=== PATIENT | male | born 1945 | race Caucasian/White ===

== ENCOUNTER 2018-06-21 22:21 | Inpatient (IN) | payer MEDICARE ==
[~2018-06-21] VITALS: Ht 160 cm; Wt 63.0 kg
[2018-06-21] MEDS ORDERED: GLUCOTROL 5 MG T5 MG PO (22:25)
[2018-06-21] MEDS ORDERED: SINEMET 25-2501 EACH PO (22:25)
[2018-06-21] MEDS ORDERED: COZAAR25 MG PO (22:26)
[2018-06-21] MEDS ORDERED: METOPROLOL TART25 MG PO (22:26)
[2018-06-21] MEDS ORDERED: AMANTADINE100 M1 PO (22:26)
[2018-06-21] MEDS ORDERED: ELIQUIS2.5 MG PO (22:26)
[2018-06-21] MEDS ORDERED: BAYER CHEWABLE81 MG PO (22:26)
[2018-06-21] MEDS ORDERED: MELATONIN 3 MG1 TAB PO (22:27)
[2018-06-21] MEDS ORDERED: TIROSINT50 MCG PO (22:46)
[2018-06-21 22:57] LABS: BASOPHILS 0.3 % (0-2); EOSINOPHILS 0.1 % (0-7); HEMATOCRIT 36.2 % (42.0-54.0); HEMOGLOBIN 11.4 g/dL (13.5-17.5); LYMPHOCYTES 11.5 % (15-50); MCH 30.8 pg (26.0-34.0); MCHC 31.5 g/dL (31.0-37.0); MCV 97.8 fL (80.0-100.0); MEAN PLATELET VOLUME 10.4 fL (7.4-10.4); MONOCYTES 4.8 % (2-11); NEUTROPHILS 82.3 % (40-80); PLATELET COUNT 240 10x3/uL (130-400); RDW 14.6 % (11.5-14.5); WBC 11.4 10x3/uL (4.8-10.8)
[2018-06-21 23:16] LABS: APTT 30.2 SECONDS (22.8-39.4); INR 1.76 (0.85-1.17); PROTIME 19.9 SECONDS (11.6-15.0)
[2018-06-21 23:25] LABS: ALBUMIN 2.8 g/dL (3.4-5.0); ALT (SGPT) 71 U/L (10-68); BILIRUBIN - TOTAL 0.79 mg/dL (0.2-1.3); CALC OSMOLALITY 291 mosm/kg (275-300); CALCIUM 7.9 mg/dL (8.5-10.1); CARBON DIOXIDE 26.4 mmol/L (21.0-32.0); CHLORIDE - SERUM 100 mmol/L (98-107); CKMB 2.8 U/L (0.0-3.6); CREATINE KINASE 210 UL (21-232); CREATININE - SERUM 2.2 mg/dL (0.6-1.3); GLUCOSE 255 mg/dL (74-106); PRO BNP 4729 pg/mL (0-125); PROTEIN - SERUM 8.1 g/dL (6.4-8.2); SODIUM 136 mmol/L (136-145); UREA NITROGEN 42 mg/dL (7-18); eGFR NON AFRICAN AMERICAN 32 mL/min (90-120)
[2018-06-21 23:39] LABS: ALKALINE PHOSPHATASE 158 U/L (46-116)
[2018-06-21 23:49] LABS: TROPONIN-I 0.077 ng/mL (0.000-0.060)
[2018-06-22] VITALS (23 sets, daily range): BP systolic 82–152; BP diastolic 45–85; Ht 160 cm; Wt 63.0 kg
--- NOTE | 2018-06-22 00:34 | NUR ---
PT GIVEN WARM BLANKETS.
--- NOTE | 2018-06-22 01:16 | NUR ---
PT GIVEN URINAL.
--- NOTE | 2018-06-22 07:00 | NUR ---
PT INTUBATED ON 100 PERCENT FIO2. O2 SAT 100 PERCENT. ASSESSMENT PER FLOWSHEET. BL WRIST RESTRAINTS ON.
--- NOTE | 2018-06-22 07:00 | NUR ---
PT RECEIVED FROM ED APPROX 0240 ACCOMPANIED BY SON AND [id number]. THE PT'S [id number] ACTED OUTSOLE MOLDER DURING THE ASSESSMENT, REPORTED THE TIMES OF MEDICINES TAKEN AT HOME, AND REPORTED MOST OF THE PT'S HEALTH HISTORY. UPON ARRIVAL, THE PT WAS PLACED ON BIPAP, ASSESSMENT PER FLOW SHEET. DR RODRIGUEZ WAS HERE TO SEE PT AND ORDERED INTUBATION BY ANESTHESIA. PT WAS INTUBATED APPROX 0520, RESTRAINTS PLACED ON THE PT PER DR RODRIGUEZ. TWO RN'S ATTEMPTED TO PLACE AN NGT, THE TUBE WAS THEN PLACED ORALLY. THERE WAS SOME BRIGHT RED BLOOD NOTED FROM BOTH NARES, AND WHEN SUCTIONED VIA ETT. ETT AND OGT PLACEMENT CONFIRMED WITH CXRY, NO CHANGES REQUIRED. (PT TAKES BLOOD THINNERS PART OF HOME REGIMEN) A MEEK CATHETER WAS ALSO PLACED. THE PT'S BLOOD PRESSURE SHOWED IMPROVEMENT AFTER THE ORDERED 500 ML NS BOLUS, CONTINUE TO MONITOR VS AND COMPLETE PHYSICIAN'S ORDERS. REPORT TO ONCOMING FATOU
[2018-06-22 07:22] LABS: % SATURATION 17 % (15-55); IRON 32 ug/dl (35-150); TOTAL IRON BIND CAPACITY 178 ug/dl (260-445); UNSAT IRON BIND CAPACITY 146 ug/dl (150-375)
[2018-06-22 13:23] LABS: CKMB 2.2 U/L (0.0-3.6); CREATINE KINASE 249 UL (21-232)
[2018-06-22 13:25] LABS: TROPONIN-I 0.157 ng/mL (0.000-0.060)
--- NOTE | 2018-06-22 15:42 | NUR ---
CVL PLACED PER CELSO MAHONEY. DR EUCEDA HERE ASSISTING. CXR ORDERED.
--- NOTE | 2018-06-22 17:00 | NUR ---
COMPLETE BATH GIVEN. LINENS CHANGED.
[2018-06-22 19:33] LABS: CKMB 1.6 U/L (0.0-3.6); CREATINE KINASE 234 UL (21-232)
[2018-06-22 19:35] LABS: TROPONIN-I 0.196 ng/mL (0.000-0.060)
[2018-06-23] VITALS (24 sets, daily range): BP systolic 36–143; BP diastolic 61–73
[2018-06-23 01:39] LABS: CREATINE KINASE 293 UL (21-232); TROPONIN-I 0.182 ng/mL (0.000-0.060)
[2018-06-23 03:13] LABS: BASOPHILS 0.2 % (0-2); EOSINOPHILS 0 % (0-7); HEMATOCRIT 28.2 % (42.0-54.0); HEMOGLOBIN 9.1 g/dL (13.5-17.5); IMMATURE GRANULOCYTES 0.8 % (0-5); LYMPHOCYTES 10.7 % (15-50); MCH 30.1 pg (26.0-34.0); MCHC 32.3 g/dL (31.0-37.0); MEAN PLATELET VOLUME 10.3 fL (7.4-10.4); MONOCYTES 2.4 % (2-11); NEUTROPHILS 85.9 % (40-80); RBC 3.02 10x6/uL (4.20-6.10); RDW 14.6 % (11.5-14.5); WBC 13.2 10x3/uL (4.8-10.8)
[2018-06-23 03:14] LABS: MCV 93.4 fL (80.0-100.0); PLATELET COUNT 154 10x3/uL (130-400)
[2018-06-23 03:37] LABS: BILIRUBIN - TOTAL 1.14 mg/dL (0.2-1.3); CALCIUM 7.3 mg/dL (8.5-10.1); CARBON DIOXIDE 25.2 mmol/L (21.0-32.0); CREATININE - SERUM 2.6 mg/dL (0.6-1.3); MAGNESIUM - SERUM 2.2 mg/dL (1.8-2.4); PHOSPHOROUS 3.2 mg/dL (2.5-4.9); PROTEIN - SERUM 6.4 g/dL (6.4-8.2); VANCOMYCIN - RANDOM 10.2 ug/mL (10.0-20.0)
[2018-06-23 03:38] LABS: ANION GAP 11.7 mmol/L (8-16); POTASSIUM - SERUM 3.9 mmol/L (3.5-5.1)
--- NOTE | 2018-06-23 04:11 | NUR ---
CHANGED PT FI02 TO 50% AND VT TO 450 BECAUSE OF MORNING ABG
--- NOTE | 2018-06-23 08:28 | NUR ---
RANDOM VANCOMYCIN LEVEL WAS 10.2 AFTER ONE DOSE. WILL CONTINUE Q 24H DOSING AND DAILY RANDOM LEVELS
--- NOTE | 2018-06-23 10:09 | NUR ---
Nutrition follow-up: Pt intubated, sedated Pulmocare started @ 20 ml/hr->to advance to goal rate of 40 ml/hr 25 ml H2O flush q hour Labs reviewed Wt: 130# RDN following.
[2018-06-23 10:20] LABS: FOLATE (FOLIC ACID) - SERUM >20.0 ng/mL (>3.0)
--- NOTE | 2018-06-23 10:22 | NUR ---
RANDOM FSBS 83, CHECKING DUE TO CURRENT INSTABILITY
--- NOTE | 2018-06-23 12:13 | NUR ---
CONSULTS CALLED TO DR. STUART AND DR. CORTEZ
[2018-06-23 14:28] LABS: INR 3.66 (0.85-1.17); PROTIME 35.5 SECONDS (11.6-15.0)
--- NOTE | 2018-06-23 15:00 | MORECARE ---
CASE MANAGEMENT DISCHARGE SUMMARY PATIENT: KAYCEE THEODORE UNIT: [id number] ADM DATE: 06/22/18 AGE: 72 : 47 SEX: M ROOM/BED: D.2307 AUTHOR: RON KASPER PHYSICIAN: REFERRING PHYSICIAN: ESPERANZA RODRIGUEZ MD DATE OF SERVICE: 06/23/18 Discharge Plan Patient Name: KAYCEE THEODORE [facility] [facility] 1945 Planned Disposition: Home Anticipated Discharge Date: Discharge Date: Expected LOS: Initial Reviewer: [email or web address] Initial Review Date: 06/22/2018 Generated: 06/23/18 3:59 pm DCPIA - Discharge Planning Initial Assessment Updated by [email or web address]: Marylou Moon on 06/23/18 2:55 pm * Is the patient Alert and Oriented? Yes * How many steps to enter\exit or inside your home? 10 - 14 * PCP HOLLY * Pharmacy [facility] * Preadmission Environment Home with Family * ADLs Independent * Other Equipment Cane, Walker * List name and contact numbers for known caregivers / representatives who currently or will assist patient after discharge: Collin Theodore - daughter - [phone] * Verbal permission to speak to the caregivers and representatives has been obtained from the patient. N/A * Community resources currently utilized None * Additional services required to return to the preadmission environment? No * Can the patient safely return to the preadmission environment? Yes * Has this patient been hospitalized within the prior 30 days at any hospital? No Patient Name: KAYCEE THEODORE Page [id number] at 1500 All edits/amendments must be made on the electronic document DICTATION DATE: 06/23/181458 PACK OUT OPERATOR: GABRIELA 06/23/181458 RPT#: [id number] DC DATE: STATUS: ADM IN [facility] [address] [place] [address] END OF REPORT
--- NOTE | 2018-06-23 15:08 | MORECARE ---
CASE MANAGEMENT DISCHARGE SUMMARY PATIENT: KAYCEE THEODORE UNIT: [id number] ADM DATE: 06/22/18 AGE: 72 : 47 SEX: M ROOM/BED: D.2307 AUTHOR: RANJITH,DOC PHYSICIAN: REFERRING PHYSICIAN: ESPERANZA RODRIGUEZ MD DATE OF SERVICE: 06/23/18 Discharge Plan Patient Name: KAYCEE THEODORE Facility: [facility]:[place] : 1945 Planned Disposition: Home Anticipated Discharge Date: Discharge Date: Expected LOS: Initial Reviewer: [email or web address] Initial Review Date: 06/22/2018 Generated: 06/23/18 4:07 pm Comments DCP- Discharge Planning Updated by [email or web address]: Marylou Moon on 06/23/18 2:[address] Patient Name: KAYCEE THEODORE Admission Status: ER Accout number: [id number] Admission Date: 06-22-2018 : 1945 Admission Diagnosis: Attending: ESPERANZA RODRIGUEZ Current LOS: 1 Anticipated DC Date: Planned Disposition: Home Primary Insurance: MEDICARE A & B Discharge Planning Comments: CM met with patient's daughter (Collin) at bedside. Patient is currently on ventilator and sedated. Collin stated that he lives at home with family and plans on him returning there upon discharge. She states that he has a cane and walker. She denies any current discharge needs at this time. CM will continue to follow and assist as needed with discharge planning / needs. Subway Repair Supervisor: Marylou Moon DCPIA - Discharge Planning Initial Assessment Updated by [email or web address]: Marylou Moon on 06/23/18 2:55 pm * Is the patient Alert and Oriented? Yes * How many steps to enter\exit or inside your home? 10 - 14 * PCP HOLLY * Pharmacy [facility] * Preadmission Environment Home with Family * ADLs Independent * Other Equipment Cane, Walker * List name and contact numbers for known caregivers / representatives who currently or will assist patient after discharge: Collin Theodore - daughter - [phone] * Verbal permission to speak to the caregivers and representatives has been obtained from the patient. N/A * Community resources currently utilized None * Additional services required to return to the preadmission environment? No * Can the patient safely return to the preadmission environment? Yes * Has this patient been hospitalized within the prior 30 days at any hospital? No Last DP export: 06/23/18 1:59 p Patient Name: KAYCEE THEODORE Page [id number] at 1508 All edits/amendments must be made on the electronic document DICTATION DATE: 06/23/181506 MEDICAL LEADER: DM 06/23/181506 RPT#: [id number] DC DATE: STATUS: ADM IN [facility] [address] [place] [address] END OF REPORT
--- NOTE | 2018-06-23 16:46 | NUR ---
STARTED PULMOCARE TO OGT AT 20ML/HR
--- NOTE | 2018-06-23 18:43 | NUR ---
FSBS WAS 66 25ML DEXTROSE GIVEN
--- NOTE | 2018-06-23 19:15 | NUR ---
RECIEVED CARE OF PT ASSESSMENT PER FLOWSHEET. HR SB ON CM, PPP, CRACKLES AUSC BILAT WITH DIM BASES, MEEK CATH PATENT, SEDATED ON VENT WITH 40 MCG/KG/MIN OF DIPRIVAN, OPENS EYES TO VOICE. ORAL CARE AND SUCTIONING PROVIDED, PT POSITIONED FOR COMFORT SUPPORTED WITH PILLOWS, WILL MONITOR.
--- NOTE | 2018-06-23 21:40 | NUR ---
PT FAMILY IN FOR VISITATION, ALL QUESTIONS ANSWERED, ORAL CARE AND SUCTIONING PROVIDED.
--- NOTE | 2018-06-23 23:15 | NUR ---
REASSESSMENT PER FLOWSHEET, NO ACUTE CHANGES NOTED AT THIS TIME. POSITIONED FOR COMFORT SUPPORTED WITH PILLOWS, CONT POC.
[2018-06-24] VITALS (24 sets, daily range): BP systolic 97–145; BP diastolic 52–77
--- NOTE | 2018-06-24 01:28 | NUR ---
PT POSITIONED FOR COMFORT, ORAL CARE AND SUCTIONING PROVIDED. VSS
--- NOTE | 2018-06-24 01:50 | NUR ---
PT RESTING IN BED WITH EYES CLOSED, VSS, CONT TO MONITOR.
--- NOTE | 2018-06-24 03:34 | NUR ---
RADIOLOGY AT BEDSIDE, AM CXR COMPLETED PER MD ORDER, PT TOLERATED WITHOUT DIFFICULTY.
--- NOTE | 2018-06-24 04:35 | NUR ---
CHANGED FIO2 TO 30% FOLLOWING MORNING ABG
[2018-06-24 05:39] LABS: INR 2.61 (0.85-1.17); PROTIME 27.2 SECONDS (11.6-15.0)
[2018-06-24 05:52] LABS: ALBUMIN 1.8 g/dL (3.4-5.0); ANION GAP 14.8 mmol/L (8-16); BILIRUBIN - TOTAL 2.11 mg/dL (0.2-1.3); CALCIUM 7.4 mg/dL (8.5-10.1); POTASSIUM - SERUM 3.8 mmol/L (3.5-5.1); PROTEIN - SERUM 6.2 g/dL (6.4-8.2); THYROID STIMULATING HORMONE 3.11 uIU/mL (0.36-3.74); VANCOMYCIN - RANDOM 11.4 ug/mL (10.0-20.0)
[2018-06-24 06:06] LABS: CREATININE - SERUM 1.6 mg/dL (0.6-1.3); PHOSPHOROUS 2.2 mg/dL (2.5-4.9)
--- NOTE | 2018-06-24 08:31 | NUR ---
CANISTERS CHANGED, LINEN CHANGED, DIPRIVAN LINE CHANGED, PATIENT POSITION CHANGED, ORAL CARE COMPLETED
--- NOTE | 2018-06-24 09:48 | NUR ---
WILL GIVE VIT. K UPON ARRIVAL FROM Rx
[2018-06-24 10:28] LABS: BASOPHILS 0.2 % (0-2); EOSINOPHILS 0.5 % (0-7); HEMATOCRIT 29.1 % (42.0-54.0); HEMOGLOBIN 9.3 g/dL (13.5-17.5); IMMATURE GRANULOCYTES 0.3 % (0-5); LYMPHOCYTES 9.5 % (15-50); MCH 30.3 pg (26.0-34.0); MCV 94.8 fL (80.0-100.0); MEAN PLATELET VOLUME 11.1 fL (7.4-10.4); MONOCYTES 2.9 % (2-11); NEUTROPHILS 86.6 % (40-80); PLATELET COUNT 143 10x3/uL (130-400); RBC 3.07 10x6/uL (4.20-6.10); RDW 15.1 % (11.5-14.5); WBC 11.6 10x3/uL (4.8-10.8)
--- NOTE | 2018-06-24 10:46 | NUR ---
PLACED INTO TEMP. DROPLET ISOLATION PER MICRO.
--- NOTE | 2018-06-24 14:45 | NUR ---
RESTARTED SEDATION PATEIT BP RISING AND HE IS BECOMING VERY ANXIOUS. RT NOTIFIED OF CHANGE
--- NOTE | 2018-06-24 15:17 | NUR ---
SPOKE WITH DR. EUCEDA ABOUT POSSIBLE CVL MIGRATION, HE IS REVIEWING XRAY
--- NOTE | 2018-06-24 15:55 | NUR ---
ALL ITEMS ASSEMBLED PER ORDERED AND CONSENT SIGNED FOR CVL CHANGE OUT.
[2018-06-24 19:08] LABS: ACID FAST SMEAR Negative (()); AFB SPECIMEN PROCESSING Concentration (())
--- NOTE | 2018-06-24 19:15 | NUR ---
RESUMED CARE OF PT, ASSESSMENT PER FLOWSHEET. HR SR WITH FREQUENT PAC'S ON CM, PPP, MEEK CATH PATENT, OGT PLACEMENT VERIFIED WITH AUSC OF SMALL AIR BOLUS, RESIDUAL OF 10 CC NOTED. ORAL CARE AND SUCTIONING PROVIDED, PT POSITIONED FOR COMFORT SUPPORTED WITH PILLOWS.
--- NOTE | 2018-06-24 21:10 | NUR ---
FAMILY PRESENT FOR VISITATION, DENY ANY QUESTIONS OR NEEDS AT THIS TIME. VSS
--- NOTE | 2018-06-24 23:15 | NUR ---
REASSESSMENT PER FLOWSHEET, NO ACUTE CHANGES NOTED AT THIS TIME, HR REMAINS SR WITH PAC'S, CONT POC.
[2018-06-25] VITALS (24 sets, daily range): BP systolic 93–134; BP diastolic 46–71
--- NOTE | 2018-06-25 01:00 | NUR ---
PT POSITIONED FOR COMFORT SUPPORTED WITH PILLOWS, ORAL CARE AND SUCTIONING PROVIDED, VSS.
--- NOTE | 2018-06-25 03:40 | NUR ---
AM CXR COMPLETED PER MD ORDER, PT TOLERATED WITHOUT DIFFICULTY, POSITIONED FOR COMFORT, VSS.
--- NOTE | 2018-06-25 05:53 | NUR ---
NO VISITORS PRESENT AT THIS TIME, VSS, CONT TO MONITOR.
[2018-06-25 06:57] LABS: BASOPHILS 0.2 % (0-2); HEMATOCRIT 27.6 % (42.0-54.0); HEMOGLOBIN 8.9 g/dL (13.5-17.5); IMMATURE GRANULOCYTES 1.1 % (0-5); LYMPHOCYTES 15.5 % (15-50); MCH 30.2 pg (26.0-34.0); MCHC 32.2 g/dL (31.0-37.0); MCV 93.6 fL (80.0-100.0); MEAN PLATELET VOLUME 11.2 fL (7.4-10.4); MONOCYTES 4.7 % (2-11); NEUTROPHILS 76.5 % (40-80); PLATELET COUNT 134 10x3/uL (130-400); RBC 2.95 10x6/uL (4.20-6.10); WBC 9.7 10x3/uL (4.8-10.8)
[2018-06-25 07:00] LABS: INR 1.99 (0.85-1.17)
--- NOTE | 2018-06-25 07:00 | NUR ---
REC'ED REPORT FROM OUTGOING RN - PT RESTING WITH EYES CLOSED - RESPIRATIONS REG RATE AND RHYTHM - CPOC
[2018-06-25 07:14] LABS: ALBUMIN 1.7 g/dL (3.4-5.0); ANION GAP 13.8 mmol/L (8-16); BILIRUBIN - TOTAL 2.94 mg/dL (0.2-1.3); CALCIUM 7.3 mg/dL (8.5-10.1); CREATININE - SERUM 1.6 mg/dL (0.6-1.3); PHOSPHOROUS 2.1 mg/dL (2.5-4.9); POTASSIUM - SERUM 3.8 mmol/L (3.5-5.1); PROTEIN - SERUM 6.4 g/dL (6.4-8.2); VANCOMYCIN - RANDOM 12.8 ug/mL (10.0-20.0)
--- NOTE | 2018-06-25 07:40 | NUR ---
REC'ED REPORT FROM OUT GOING RN - RADHA MARTINEZ PLAN TO WEAN PT TO CPAP TRIAL TODAY - CPOC AND REPORT FINDINGS
--- NOTE | 2018-06-25 08:00 | NUR ---
ASSESSMENT COMPLETE - MEDICATION GIVEN *SEE MAR* - BREAKFAST TRAY GIVEN TO PATIENT - CPOC
--- NOTE | 2018-06-25 08:30 | NUR ---
ANSWERED CALL LIGHT - PATIENT FINISHED WITH BREAKFASAT TRAY -
--- NOTE | 2018-06-25 08:30 | NUR ---
FAMILY IN ROOM - PATIENT ONLY SPEAK GUJARTI - DOES NOT SPEAK BURKINAN - ONLY HIS NEICE - PHONE NUMBER LISTED ON COVER SHEET - KRISTI UNABLE TO STAY WITH PATIENT SHE IS PRIMARY HOT MILL ROLLER TO PT'S SPOUSE AND MOTHER IN LAW - ATTEMPTED TO DOWNLAD INTERPERATION CLAUDIA BUT AUDITORY INTERPERTATION IS NOT AVAILABLE IN THIS LANGUAGE - [id number] PAGED [place] SUPERVIOR TO ASK FOR INTERPERTATION PHONE - AWAITING PHONE IF AVAILABLE -
--- NOTE | 2018-06-25 09:10 | NUR ---
DRECREASED DIPRAVAN TO 40MCG PER R.T. DIRECTION - PT ON SIM - OC
--- NOTE | 2018-06-25 10:40 | NUR ---
ADJUSTED FEED PUMP - REPOSTIOINED PT AND MEDICATIONS GIVEN
--- NOTE | 2018-06-25 11:26 | NUR ---
DR. DUARTE AT BEDSIDE FOR ASSESSMENT - DECREASED NS TO 50 ML/HR, PLAN OF BIPAP BID - VSS - CPOC
--- NOTE | 2018-06-25 11:27 | NUR ---
PLACED WARM BLANKET ON PT -
--- NOTE | 2018-06-25 13:59 | NUR ---
BATHED PT - CHANGED BED CLOTHES/LINENS - PT RESTING - VSS CPOC
--- NOTE | 2018-06-25 17:35 | NUR ---
REG INSULIN GIVEN - VSS - CPOC
--- NOTE | 2018-06-25 18:10 | NUR ---
DR. CORTEZ AT BEDSIDE FOR ASSESSMENT - REVIEWED EKG WITH MD AND PLAN OF CARE
--- NOTE | 2018-06-25 18:53 | NUR ---
REVIEWED 30 SECOND EKG STRIP - APPEARS THOUGH SICK SINUS - EKG AND LAB DRAWN - PAGED MANAGER CONTROL WARP CLAMPER - AWAITING CALL BACK
[2018-06-25 19:11] LABS: CALCIUM 7.3 mg/dL (8.5-10.1); CARBON DIOXIDE 22.3 mmol/L (21.0-32.0); CREATININE - SERUM 1.5 mg/dL (0.6-1.3); MAGNESIUM - SERUM 2.2 mg/dL (1.8-2.4); POTASSIUM - SERUM 4.3 mmol/L (3.5-5.1)
--- NOTE | 2018-06-25 19:30 | NUR ---
RESUMED CARE OF PT, ASSESSMENT PER FLOWSHEET. PT REMAINS INTUBATED AND SEDATED, SIMV SETTING 30% FIO2, RR IN 20'S. PT POSITIONED FOR COMFORT, ORAL CARE AND SUCTIONING PROVIDED, VSS.
--- NOTE | 2018-06-25 21:10 | NUR ---
ORAL CARE AND SUCTIONING PROVIDED, THICK FARRELL SPUTUM NOTED, POSITIONED FOR COMFORT SUPPORTED WITH PILLOWS, VSS.
--- NOTE | 2018-06-25 23:50 | NUR ---
ORAL CARE AND SUCTIONING PROVIDED, POSITIONED FOR COMFORT SUPPORTED WITH PILLOWS, VSS, CONT POC.
[2018-06-26] VITALS (21 sets, daily range): BP systolic 88–129; BP diastolic 46–71
[2018-06-26 03:57] LABS: BASOPHILS 0.2 % (0-2); EOSINOPHILS 2.9 % (0-7); HEMATOCRIT 26.9 % (42.0-54.0); HEMOGLOBIN 8.7 g/dL (13.5-17.5); IMMATURE GRANULOCYTES 2.2 % (0-5); LYMPHOCYTES 13.6 % (15-50); MCH 30.3 pg (26.0-34.0); MCHC 32.3 g/dL (31.0-37.0); MCV 93.7 fL (80.0-100.0); MEAN PLATELET VOLUME 10.5 fL (7.4-10.4); MONOCYTES 8.4 % (2-11); NEUTROPHILS 72.7 % (40-80); PLATELET COUNT 121 10x3/uL (130-400); RBC 2.87 10x6/uL (4.20-6.10); RDW 15.2 % (11.5-14.5); WBC 10.5 10x3/uL (4.8-10.8)
[2018-06-26 04:02] LABS: PROTIME 17.7 SECONDS (11.6-15.0)
[2018-06-26 04:04] LABS: INR 1.52 (0.85-1.17)
[2018-06-26 04:29] LABS: ALBUMIN 1.8 g/dL (3.4-5.0); ANION GAP 13.4 mmol/L (8-16); BILIRUBIN - TOTAL 4.62 mg/dL (0.2-1.3); CALCIUM 7.4 mg/dL (8.5-10.1); CARBON DIOXIDE 22.2 mmol/L (21.0-32.0); CREATININE - SERUM 1.6 mg/dL (0.6-1.3); PHOSPHOROUS 2.6 mg/dL (2.5-4.9); POTASSIUM - SERUM 4.6 mmol/L (3.5-5.1); PROTEIN - SERUM 6.1 g/dL (6.4-8.2); VANCOMYCIN - RANDOM 15.9 ug/mL (10.0-20.0)
--- NOTE | 2018-06-26 04:37 | NUR ---
AM LABS REVIEWED, NOTHING TO TREAT PER ELECTROLYTE PROTOCOL, CONT POC.
--- NOTE | 2018-06-26 05:50 | NUR ---
NO VISITORS PRESENT AT THIS TIME, PT POSITIONED FOR COMFORT SUPPORTED WITH PILLOWS, MEEK CARE PROVIDED.
--- NOTE | 2018-06-26 07:00 | NUR ---
SHIFT ASSESSMENT COMPLETED. PT CARE ASSUMED. MONITORS ON AND WORKING, VITALS STABLE, HEART RATE IRREGULAR, PT SEDATED ON VENT, NO SIGNS/SYMPTOMS OF PAIN OR DISCOMFORT NOTED AT THIS TIME. WILL CONTINUE TO OBSERVE.
--- NOTE | 2018-06-26 09:00 | NUR ---
PT TURNED AND REPOSITIONED, ORAL CARE DONE AT THIS TIME. NO SIGNS/SYMPTOMS OF PAIN OR DISCOMFORT NOTED, WILL CONTINUE TO OBSERVE.
--- NOTE | 2018-06-26 09:31 | NUR ---
Nutrition follow up: pt sedated on vent Pt is tolerating Pulmocare at 40mL/hour No water flushes at this time-nursing to ask physician about fluid Informed nursing of BETTYE Bray recommendation of water flushes of 20mL/hour Reviewed labs: BG 217, BUN 33, Cr 1.6, Ca 7.[address] following
--- NOTE | 2018-06-26 11:00 | NUR ---
PT TURNED AND REPOSITIONED. ORAL CARE DONE AT THIS TIME, NO FURTHER CHANGES, SEE FLOW SHEET FOR FURTHER DETAILS. WILL CONTINUE TO OBSERVE.
--- NOTE | 2018-06-26 13:00 | NUR ---
PT TURNED AND REPOSTIONED, MONITORS ON AND WORKING, VITALS STABLE, ORAL CARE DONE, WILL CONTINUE TO OBSERVE.
[2018-06-26 13:14] LABS: FUNGUS STAIN Final report (())
--- NOTE | 2018-06-26 15:00 | NUR ---
PT TURNED AND REPOSITIONED, MONITORS ON AND WORKING, ORAL CARE DONE AT THIS TIME, NO SIGNS/SYMPTOMS OF PAIN OR DISCOMFORT NOTED AT THIS TIME, WILL CONTINUE TO OBSERVE.
--- NOTE | 2018-06-26 17:00 | NUR ---
PT TURNED AND REPOSITIONED ORAL CARE DONE, NO SIGNS/SYMPTOMS OF PAIN OR DISCOMFORT NOTED AT THIS TIME, WILL CONTINUE TO OBSERVE.
[2018-06-27] VITALS (25 sets, daily range): BP systolic 116–158; BP diastolic 53–95
[2018-06-27 07:19] LABS: ALBUMIN 1.7 g/dL (3.4-5.0); BILIRUBIN - TOTAL 5.29 mg/dL (0.2-1.3); CALCIUM 7.7 mg/dL (8.5-10.1); CARBON DIOXIDE 22.8 mmol/L (21.0-32.0); CREATININE - SERUM 1.6 mg/dL (0.6-1.3); PROTEIN - SERUM 6.8 g/dL (6.4-8.2); VANCOMYCIN - RANDOM 18.9 ug/mL (10.0-20.0)
[2018-06-27 07:20] LABS: ANION GAP 11.7 mmol/L (8-16); POTASSIUM - SERUM 5.5 mmol/L (3.5-5.1)
[2018-06-27 08:22] LABS: HEPATITIS C ANTIBODY 0.1 S/CO RAT (0.0-0.9)
--- NOTE | 2018-06-27 12:46 | NUR ---
0700 ASLEEP WHILE ON VENT WITHOUT SEDATION. ASSESSMENT COMPLETE
--- NOTE | 2018-06-27 12:49 | NUR ---
0900 VENT SETTING CHANGED TO CPAP MODE BY RT MOUTH AND MEEK CARE PROVIDED REPOSITIONED IN BED PILLOW SUPPORT USED
--- NOTE | 2018-06-27 12:51 | NUR ---
1100 FAMILY MEMBERS AT BEDSIDE UPDATE PROVIDED ORAL CARE PERFORMED
--- NOTE | 2018-06-27 12:52 | NUR ---
1300 DR BARKSDALE EVALUATING POSSIBLE EXTUBATION REQUESTED NOT TO RRESTART TUBE FEEDING MAY REPEAT EVALUATION LATER IN THE DAY
--- NOTE | 2018-06-27 15:56 | NUR ---
1500 RESTARTED TUBE FEEDING PER DR JOSUE COLLIER. WILL NOT EXTUBATE TODAY PATIENT IS TOO LETHARGIC
--- NOTE | 2018-06-27 19:30 | NUR ---
Received patient sedated in bed on vent with eyes closed, assessment completed per flowsheet. Opens eyes to voice/responds to noxious stimuli. S1/S2 noted Controlled Afib on telemetry with HR 94. Vent settings A/C R-10 V-450 30% P-5 with O2 sat 97%, crackles noted bilateral upper and mid with diminished lower. All pulses palpable with cap refill < 3 sec, skin warm/dry. Oral care/suctioning provided, repositioned for comfort. No other needs at this time, see flowsheet for details. All VSS and will continue to monitor.
--- NOTE | 2018-06-27 21:20 | NUR ---
Patient sedated in bed on vent with eyes closed, oral care/suctioning provided. HS meds given without difficulty, repositioned for comfort. No further needs, all VSS and will continue to monitor.
--- NOTE | 2018-06-27 23:20 | NUR ---
Reassessment completed per flowsheet, no changes from previous assessment. Patient laying in bed on vent with eyes closed, no sedation in use. S1/S2 noted uncontrolled Afib on telemetry with HR 105. Vent settings unchanged from previous, crackles noted bilateral upper and mid with diminished lower. All pulses palpable with cap refill < 3 sec, skin warm/dry. Oral care/suctioning provided, repositioned for comfort. No further needs at this time, see flowsheet for details. All VSS and will continue to monitor.
[2018-06-28] VITALS (25 sets, daily range): BP systolic 128–165; BP diastolic 63–97
--- NOTE | 2018-06-28 01:20 | NUR ---
Patient sleeping in bed on vent with eyes closed, no s/s of distress at this time. CVL dressing changed per protocol, TF bags changed per protocol. Oral care/suctioning provided, repositioned for comfort. No further needs at this time, all VSS and will continue to monitor.
--- NOTE | 2018-06-28 03:15 | NUR ---
Reassessment completed per flowsheet, no changes from previous assessment. Patient opens eyes to voice/withdraws from noxious stimuli, no sedation in use. S1/S2 noted Controlled Afib on telemetry with HR 97. Vent settings unchanged from previous with o2 sat 97%, crackles noted bilateral upper and mid with diminished lower. All pulses palpable with cap refill < 3 sec, skin warm/dry. Oral care/suctioning provided, repositioned for comfort. no further needs at this time, see flowsheet for details. All VSS and will continue to monitor.
--- NOTE | 2018-06-28 05:00 | NUR ---
AM labs collected without difficulty, patient resting in bed with eyes closed. Oral care/suctioning provided, repositioned for comfort. No further needs at this time, all VSS and will continue to monitor.
[2018-06-28 05:36] LABS: BASOPHILS 0.3 % (0-2); EOSINOPHILS 0.5 % (0-7); HEMATOCRIT 26.7 % (42.0-54.0); HEMOGLOBIN 8.7 g/dL (13.5-17.5); LYMPHOCYTES 12.4 % (15-50); MCHC 32.6 g/dL (31.0-37.0); MCV 92.1 fL (80.0-100.0); MEAN PLATELET VOLUME 10.7 fL (7.4-10.4); MONOCYTES 12.4 % (2-11); NEUTROPHILS 68.4 % (40-80); RDW 14.9 % (11.5-14.5); WBC 13.6 10x3/uL (4.8-10.8)
[2018-06-28 05:38] LABS: PLATELET COUNT 150 10x3/uL (130-400)
[2018-06-28 05:50] LABS: ALBUMIN 1.6 g/dL (3.4-5.0); ANION GAP 11.2 mmol/L (8-16); BILIRUBIN - TOTAL 4.66 mg/dL (0.2-1.3); CARBON DIOXIDE 24.8 mmol/L (21.0-32.0); CREATININE - SERUM 1.4 mg/dL (0.6-1.3); PROTEIN - SERUM 7.3 g/dL (6.4-8.2); VANCOMYCIN - RANDOM 19.9 ug/mL (10.0-20.0)
[2018-06-28 06:19] LABS: INR 1.36 (0.85-1.17); PROTIME 16.2 SECONDS (11.6-15.0)
--- NOTE | 2018-06-28 09:40 | NUR ---
0700 PT RECIEVED ALERT, INTUBATED, TRACKS WITH EYES, DOES NOT SPEAK TURKISH, VSS, NO SIGNS OF PAIN, OGT WITH PULMOCARE INFUSING, TURNED OFF IN PREPARATION TO WEAN VENT, L SUBCLAVIAN CVL DRESSING CDIW ITH NS INFUSING, MEEK DRAINING YELLOW URINE 0830 AM MEDS GIVEN, FAMILY AT BEDSIDE, PT OCCASIONALLY FOLLOWS COMMANDS WHEN ASKED BY FAMILY
--- NOTE | 2018-06-28 10:27 | NUR ---
EXTUBATED WITH WRIST RESTRAINTS REMOVED AT 1025. DR BARKSDALE IN UNIT
--- NOTE | 2018-06-28 12:34 | NUR ---
PT TOLERATING BIPAP WELL, HR AFIB 80-120S, DR BARKSDALE AND AMADOR AWARE
--- NOTE | 2018-06-28 13:17 | NUR ---
Nutrition follow up Reviewed chart and labs and spoke with nursing Pt extubated today Swallow evaluation ordered RD following
--- NOTE | 2018-06-28 17:02 | NUR ---
1500 PT REPOSITIONED, FAMILY AT BEDSIDE,WILL CONTINUE TO MONITOR 1700 FAMILY AT BEDSIDE AND ABLE TO CONVERSE WITH PT, EXPLAINED NPO FROM SWALLOW STUDY, WILL CONTINUE TO MONITOR
--- NOTE | 2018-06-28 19:10 | NUR ---
Received patient resting in bed with eyes closed, assessment completed per flowsheet. Language barrier as patient speaks no Estonian, answers appropiately/follows instructions in united auburn language. Eyes PERRLA @ 3mm with brisk response, sclera is clear/slight reddened. S1/S2 noted Uncontrolled Afib on telemetry with HR 125. Breathing is shallow on BiPAP 30% with O2 sat 97%, Crackles noted bilateral upper with diminished mid and lower. Abdomen is soft/round with bowel sounds active x4, non-tender. Celis secured, concentrated yellow urine noted. All pulses palpable with cap refill < 3 sec, skin warm/dry. Repositioned for comfort, no further needs at this time. See flowsheet for details, all VSS and will continue to monitor.
--- NOTE | 2018-06-28 21:50 | NUR ---
DR. DUARTE PAGED AND UPDATED ON PT STATUS, HR 140S, TREMULOUS. FAMILY AT BS SONS AND NEXT OF KIN REQUEST DNR. DNR ORDERED. SEE EMAR FOR OTHER NEW ORDERS.
--- NOTE | 2018-06-28 22:00 | NUR ---
Patient converted to Sinus Tach on telemetry, rythmic and regular.
--- NOTE | 2018-06-28 22:55 | NUR ---
Patient HR >120, PRN Metoprolol given as ordered. PRN Ativan provided, will attempt to place on BiPAP per orders.
--- NOTE | 2018-06-28 23:00 | NUR ---
Reassessment completed per flowsheet, no changes noted from previous assessment. S1/S2 noted Sinus Tach on telemtry with HR 127, rythmic and regular. Breathing is shallow on 3L via NC with O2 sat 97%, crackles noted bilateral upper with diminished mid and lower. All pulses palpable with cap refill < 3 sec, skin warm/dry. Repositioned for comfort, no further needs at this time. See flowsheet for details, all VSS and will continue to monitor.
[2018-06-29] VITALS (25 sets, daily range): BP systolic 121–150; BP diastolic 67–97
--- NOTE | 2018-06-29 01:00 | NUR ---
Patient resting in bed on BiPAP 30% with O2 sat 98%, no s/s of distress at this time. Repositioned for comfort, no further needs at this time and will continue to monitor.
--- NOTE | 2018-06-29 02:45 | NUR ---
Reassessment completed per flowsheet, no changes from previous assessment. S1/S2 noted Sinus Tach with regular PAC on telemetry and HR 116, irregular. Breathing is shallow on 3L via NC with O2 sat 97%, crackles noted bilateral upper with diminished mid and lower. All pulses palpable with cap refill < 3 sec, skin warm/dry. Oral care/suctioning provided, repositioned for comfort. No further needs at this time, see flowsheet for details. All VSS and will continue to monitor.
--- NOTE | 2018-06-29 05:00 | NUR ---
Patient resting in bed on 3L via NC with O2 sat 97%, no s/s of distress at this time. Oral care/suctioning provided, repositioned for comfort. No further needs and will continue to monitor.
[2018-06-29 05:17] LABS: BASOPHILS 0.4 % (0-2); EOSINOPHILS 1.1 % (0-7); HEMATOCRIT 26.4 % (42.0-54.0); HEMOGLOBIN 8.6 g/dL (13.5-17.5); IMMATURE GRANULOCYTES 6.2 % (0-5); LYMPHOCYTES 12.8 % (15-50); MCH 30.5 pg (26.0-34.0); MCHC 32.6 g/dL (31.0-37.0); MCV 93.6 fL (80.0-100.0); MEAN PLATELET VOLUME 10.8 fL (7.4-10.4); MONOCYTES 10.3 % (2-11); NEUTROPHILS 69.2 % (40-80); PLATELET COUNT 165 10x3/uL (130-400); RBC 2.82 10x6/uL (4.20-6.10); WBC 13.9 10x3/uL (4.8-10.8)
[2018-06-29 05:30] LABS: ALBUMIN 1.6 g/dL (3.4-5.0); ANION GAP 10.7 mmol/L (8-16); BILIRUBIN - TOTAL 4.24 mg/dL (0.2-1.3); CALCIUM 8.4 mg/dL (8.5-10.1); CARBON DIOXIDE 25.7 mmol/L (21.0-32.0); CREATININE - SERUM 1.3 mg/dL (0.6-1.3); POTASSIUM - SERUM 4.4 mmol/L (3.5-5.1); PROTEIN - SERUM 7.4 g/dL (6.4-8.2)
--- NOTE | 2018-06-29 09:00 | NUR ---
PT TURNED AND REPOSITIONED FOR COMFORT, FAMILY AT BEDSIDE, UPDATE PROVIDED, NO SIGNS/SYMPTOMS OF PAIN OR DISCOMFORT NOTED AT THIS TIME, MONITORS ON AND WORKING, VITALS STABLE, WILL CONTINUE TO OBSERVE.
--- NOTE | 2018-06-29 11:00 | NUR ---
MONITORS ON AND WORKING, NO CHANGES, SEE FLOW SHEET FOR FURTHER DETAILS. WILL CONTINUE TO OBSERVE.
--- NOTE | 2018-06-29 13:00 | NUR ---
PT TURNED AND REPOSITIONED, PT CLEANED FROM BM, BED BATH AND LINEN CHANGE COMPLETED AT THIS TIME, NO SIGNS/SYMPTOMS OF PAIN OR DISCOMFORT NOTED, CALL LIGHT WITHIN REACH, WILL CONTINUE TO OBSERVE, FAMILY AT BEDSIDE UPDATE PROVIDED. WILL CONTINUE TO OBSERVE.
--- NOTE | 2018-06-29 15:00 | NUR ---
PT TURNED AND REPOSIITIONED, MONITORS ON AND WORKING, VITALS STABLE, SEE FLOW SHEET FOR FURTHER DETAILS. WILL CONTINUE TO OBSERVE.
--- NOTE | 2018-06-29 17:00 | NUR ---
DR BARKSDALE AT BEDSIDE TO DROP OG TUBE FOR FEEDINGS AND MEDS, STAT CXR ORDERED. MONITORS ON AND WORKING, VITALS STABLE, WILL CONTINUE TO OBSERVE.
--- NOTE | 2018-06-29 19:00 | NUR ---
ASSESSMENT COMPLETD. SEE FLOWSHEETS FOR ALL FINDINGS. PT AROUSES WITH VOICES, UNABLE TO UNDERSTAND, FOLLOWS SIMPLE COMMANDS. ST ON CM WITH HR AT 105BPM. LUNG SOUNDS CRACKLES TO ULB WITH DIMINISHED TO LLB, UNLABORED. OGT IN PLACE CLUMPED. PLACEMENT VERIFIED BY AIR BOLUS, FLUSHED WITH 10CC WATER WITHOUT DIFFIC. PPP. REPOSITIONED FOR COMFORT.HOB UP. CALL LIGHT IN REACH. CPOC.
--- NOTE | 2018-06-29 20:10 | NUR ---
FAMILY AT BEDSIDE. UPDATED.
--- NOTE | 2018-06-29 21:00 | NUR ---
SCHEDULED MEDS GIVEN PER ORDER VIA OGT. FAMILY REMAINS AT BEDSIDE. CPOC.
--- NOTE | 2018-06-29 22:00 | NUR ---
PT INCONTINENT OF STOOL. MEEK AND GLORIA CARE PROVIDED. LINEN CHANGED. SKIN CARE DONE. REPOSITIONED FOR COMFORT. PILLOWS IN USE FOR SUPPORT. HOB UP. SIDE RAILS UP. HEELS BRIDGED. CALL LIGHT IN REACH. CPOC.
--- NOTE | 2018-06-29 23:00 | NUR ---
REASSESSMENT COMPLETED PER FLOWSHEETS. NO ACUTE CHANGES IN PT'S STATUS AT THIS TIME. ST ON CM. O2SAT 98% ON 2L VIA NC, UNLABORED. CONT TO MONITOR.
[2018-06-30] VITALS (26 sets, daily range): BP systolic 102–150; BP diastolic 42–99
--- NOTE | 2018-06-30 01:00 | NUR ---
PT RESTING QUIETLY WITHOUT DISTRESS AT THIS TIME. VSS. REPOSITIONED FOR COMFORT. PILLOWS IN USE FOR SUPPORT. CALL LIGHT IN REACH. CONT TO MONITOR.
--- NOTE | 2018-06-30 03:00 | NUR ---
REASSESSMENT COMPLETED PER FLOWSHEETS. NO ACUTE CHANGES IN PT' STATUS NOTED. VSS.CPOC.
[2018-06-30 05:10] LABS: HEMATOCRIT 27.6 % (42.0-54.0); HEMOGLOBIN 8.7 g/dL (13.5-17.5); MCH 30.2 pg (26.0-34.0); MCHC 31.5 g/dL (31.0-37.0); MCV 95.8 fL (80.0-100.0); MEAN PLATELET VOLUME 10.5 fL (7.4-10.4); PLATELET COUNT 189 10x3/uL (130-400); RBC 2.88 10x6/uL (4.20-6.10); RDW 16.2 % (11.5-14.5); WBC 13.1 10x3/uL (4.8-10.8)
--- NOTE | 2018-06-30 05:30 | NUR ---
HR TO 120S. LOPRESSOR 2.5MG IVP GIVEN PER ORDER. CPOC.
[2018-06-30 05:37] LABS: EOSINOPHILS 1 % (0-7); LYMPHOCYTES 10 % (15-50); MONOCYTES 4 % (2-11); NEUTROPHILS 78 % (40-80); PLATELET ESTIMATE NORMAL
--- NOTE | 2018-06-30 07:00 | NUR ---
SHIFT ASSESSMENT COMPLETED, PT CARE ASSUMED, MONITORS ON AND WORKING, NO SIGNS/SYPMTOMS OF PAIN OR DISCOMFORT NOTED. SEE FLOW SHEET FOR FURTHER DETAILS, WILL CONTINUE TO OBSERVE.
--- NOTE | 2018-06-30 09:00 | NUR ---
PT TURNED AND REPOSITIONED FOR COMFORT, MONITORS ON AND WORKING, VITALS STABLE, NO SIGNS/SYMPTOMS OF PAIN OR DISCOMFORT NOTED. SPOKE WITH TOOL GRINDING MACHINE OPERATOR REGARDING TUBE FEEDINGS, ORDERS REC'D AND IN, FAMILY AT BEDSIDE, UPDATE PROVIDED, NO SIGNS/SYMPTOMS OF PAIN OR DISCOMFORT NOTED AT THIS TIME, WILL CONTINUE TO OBSERVE.
--- NOTE | 2018-06-30 09:26 | NUR ---
Nutrition Follow Up TF formula changed to Glucerna 1.0 @ 40 mL/hour Pt reports some hunger and would like to supplement TF Will increase Glucerna 1.0 as tolerated to a goal rate of 65mL/hour This will better meet pt nutritional needs by providing 1527 calories, 64gm protein and 1309mL fluid Recommend a water flush of 10mL/hour to meet fluid needs
[2018-06-30 09:41] LABS: ALBUMIN 1.6 g/dL (3.4-5.0); ANION GAP 12.7 mmol/L (8-16); BILIRUBIN - TOTAL 3.27 mg/dL (0.2-1.3); CALCIUM 8.2 mg/dL (8.5-10.1); CARBON DIOXIDE 24.5 mmol/L (21.0-32.0); CREATININE - SERUM 1.3 mg/dL (0.6-1.3); POTASSIUM - SERUM 4.2 mmol/L (3.5-5.1); PROTEIN - SERUM 7.3 g/dL (6.4-8.2)
--- NOTE | 2018-06-30 11:00 | NUR ---
PT TURNED AND REPOSITIONED FOR COMFORT, PT CLEANED FROM BM AND LINEN CHANGE COMPLETED AT THIS TIME. NO SIGNS/SYMPTOMS OF PAIN OR DISCOMFORT NOTED, WILL CONTINUE TO OBSERVE. SEE FLOW SHEET FOR FURTHER DETAILS.
--- NOTE | 2018-06-30 13:00 | NUR ---
PT TURNED AND REPOSITIONED FOR COMFORT, NO SIGNS/SYMPTOMS OF PAIN OR DISCOMFORT NOTED AT THIS TIME, FAMILY AT BEDSIDE, WILL CONTINUE TO OBSERVE.
[2018-06-30 14:15] LABS: FUNGUS MYCOLOGY CULTURE Preliminary report (())
--- NOTE | 2018-06-30 15:00 | NUR ---
PT TURNED AND REPOSITIONED FOR COMFORT, MONITORS ON AND WORKING, VITALS STABLE, SEE FLOW SHEET FOR FURTHER DETIALS. FAMILY AT BEDSIDE UPDATE PROVIDED, NO SIGNS SYMPTOMS OF PAIN OR DISCOMFORT NOTED AT THIS TIME, WILL CONTINUE TO OBSERVE.
--- NOTE | 2018-06-30 17:00 | NUR ---
PT TURNED AND REPOSITIONED FOR COMFORT, ORAL CARE DONE AT THIS TIME, PT CLEANED FROM BM, PARTIAL LINEN CHANGE DONE AT THIS TIME, MONITORS ON AND WORKING, VITALS STABLE, NO SIGNS/SYMPTOMS OF PAIN OR DISCOMFORT NOTED. WILL CONTINUE TO OBSERVE.
--- NOTE | 2018-06-30 19:00 | NUR ---
RECEIVED PATIENT CARE - PATIENT ON 4L NC, VSS UNABLE TO COMMUNICATE OR FOLLOW COMMANDS, LANGUAGE BARRIER. OPENS EYES SPONTANEOUSLY. SHAKING NOTED. UNCONTROLLED AFIB ON TELEMETERY, SHIFT ASSESSMENT COMPLETED SEE FLOWSHEET
--- NOTE | 2018-06-30 21:00 | NUR ---
YUNG JOY RECEIVED SEE EMAR FOR ADMINISTRATION
--- NOTE | 2018-06-30 22:05 | NUR ---
FAMILY AT BEDSIDE, ALL QUESTIONS ANSWERED UPDATE GIVE, CPOC
--- NOTE | 2018-06-30 23:30 | NUR ---
REASSESSMENT COMPLETED SEE FLOWSHEET
[2018-07-01] VITALS (18 sets, daily range): BP systolic 100–179; BP diastolic 61–110
--- NOTE | 2018-07-01 03:10 | NUR ---
REASSESSMENT COMPLETED SEE FLOWSHEET
--- NOTE | 2018-07-01 05:15 | NUR ---
ELEVATED TEMP NOTED. HR ELEVATED, PRN MEDICATION GIVEN SEE EMAR FOR ADMINISTRATION
--- NOTE | 2018-07-01 07:00 | NUR ---
REC'D SUPINE, EYES OPENS, TREMORS NOTED, VSS.
--- NOTE | 2018-07-01 07:40 | NUR ---
ASSESSED, REPOSITIONED, BLANKETS REMAIN OFF D/T AX TEMP 100.
--- NOTE | 2018-07-01 08:30 | NUR ---
SON IN AND UPDATED. VANESSA AT REQUEST BY BRIANDA.
--- NOTE | 2018-07-01 10:10 | NUR ---
LOPRESSOR 2.5MG IVP FOR HR >110.
--- NOTE | 2018-07-01 11:45 | NUR ---
REASSESSED W/O CHANGES. MAKAYLA HANSEN AND JULIAN HAVE ROUNDED. DR WILLOUGHBY DISCUSSED POSSIBLE HOSPICE EVAL ONCE FAMILY TALKS AND COMES TO A DECISION.
--- NOTE | 2018-07-01 11:50 | NUR ---
INCONT SMALL BROWN PASTY STOOL. BUTTPASTE APLLIED TO EXCORIATED GLORIA-RECTAL AREA.
--- NOTE | 2018-07-01 14:00 | NUR ---
INCONT SMALL PASTY BROWN STOOL, BUTTPASTE APLLIED, REPOSITIONED.
--- NOTE | 2018-07-01 15:08 | NUR ---
MOTRIN 200MG FOR GENERALIZED DISCOMFORT- MOANING AND TREMORS ARE WORSE THAN NORMAL.
--- NOTE | 2018-07-01 16:00 | NUR ---
DR CANDY LOPEZ. ORDERS REC'D.
--- NOTE | 2018-07-01 17:00 | NUR ---
FAMILY IN & OUT TODAY. WAS APPROACHED BY CHILDREN AND THEY REQUEST THE PT BE PLACED IN HOSPICE CARE. MSG LEFT AT [facility].
--- NOTE | 2018-07-01 18:15 | NUR ---
FAMILY SAYS HE WANTS TO GET ON BEDPAN. LARGE BROWN SOFT WITH LARGE AMT HARD FORMED BROWN STOOL. BUTT PAST APPLIED.
--- NOTE | 2018-07-01 18:25 | NUR ---
REPORT TO Laura BHATTI LPN AND TRANSFERRED TO ROOM 2223 VIA BED.
--- NOTE | 2018-07-01 19:00 | NUR ---
REPORT RECEIVED AND CARE OF PT ASSUMED. PT JUST ARRIVED ON UNIT FROM ICU AND IS AWAITING A HOSPICE CONSULT...HOSPICE NURSE HAS BEEN CALLED. DAUGHTER IS AT BEDSIDE. OG TUBE PATENT WITH GLUCERNA INFUSING VIA FEEDING PUMP AT 65 ML / HR AND A 100 ML WATER FLUSH Q6 HRS. LEFT CVL PATENT WITH D51.2 NS INFUISNG AT 50 ML / HR. MEEK CATHETER DRAINING TO GRAVITY WITH DARK YELLOW URINE IN COLLECTION BAG. O2 IN USE VIA NC AT 4L. WILL MONITOR FOR NEEDS. WILL MONITOR FOR NEEDS.
--- NOTE | 2018-07-01 19:05 | MORECARE ---
CASE MANAGEMENT DISCHARGE SUMMARY PATIENT: KAYCEE THEODORE UNIT: [id number] ADM DATE: 06/22/18 AGE: 72 : 47 SEX: M ROOM/BED: D.2307 AUTHOR: RANJITH,DOC PHYSICIAN: REFERRING PHYSICIAN: ESPERANZA RODRIGUEZ MD DATE OF SERVICE: 07/01/18 Discharge Plan Patient Name: KAYCEE THEODORE Facility: [facility]:[place] : 1945 Planned Disposition: Home Anticipated Discharge Date: Discharge Date: Expected LOS: Initial Reviewer: [email or web address] Initial Review Date: 06/22/2018 Generated: 07/01/18 8:05 pm Comments DCP- Discharge Planning Updated by [email or web address]: Lucrecia Hendricks on 07/01/18 6:[address] ORDER RECEIVED FOR HOSPICE CONSULT. SPOKE WITH VIJAY, PRIMARY NURSE. TC TO [facility],. CONTRACTED [facility] HOSPICE PROVIDER. SPOKE WITH ANSWERING SERVICE. 1839 RECEIVED TELEPHONE CALL FROM PILE OPERATOR NURSEFATMATA. REFERRAL INFORMATION PROVIDED. SHE WILL CONTACT NAOMI THEODORE, DAUGHTER IN LAW, DIRECTED BY ICU NURSE. AWAIT HOSPICE CONSULT. DCP- Discharge Planning Updated by [email or web address]: Marylou Moon on 06/23/18 2:[address] Patient Name: KAYCEE THEODORE Admission Status: ER Accout number: [id number] Admission Date: 06-22-2018 : 1945 Admission Diagnosis: Attending: ESPERANZA RODRIGUEZ Current LOS: 1 Anticipated DC Date: Planned Disposition: Home Primary Insurance: MEDICARE A & B Discharge Planning Comments: CM met with patient's daughter (Collin) at bedside. Patient is currently on ventilator and sedated. Collin stated that he lives at home with family and plans on him returning there upon discharge. She states that he has a cane and walker. She denies any current discharge needs at this time. CM will continue to follow and assist as needed with discharge planning / needs. Bread Wrapping Machine Feeder: Marylou Moon DCPIA - Discharge Planning Initial Assessment Updated by [email or web address]: Marylou Moon on 06/23/18 2:55 pm * Is the patient Alert and Oriented? Yes * How many steps to enter\exit or inside your home? 10 - 14 * PCP HOLLY * Pharmacy [facility] * Preadmission Environment Home with Family * ADLs Independent * Other Equipment Cane, Walker * List name and contact numbers for known caregivers / representatives who currently or will assist patient after discharge: Collin Theodore - daughter - [phone] * Verbal permission to speak to the caregivers and representatives has been obtained from the patient. N/A * Community resources currently utilized None * Additional services required to return to the preadmission environment? No * Can the patient safely return to the preadmission environment? Yes * Has this patient been hospitalized within the prior 30 days at any hospital? No Last DP export: 06/23/18 2:07 p Patient Name: KAYCEE THEODORE Page [id number] at 1905 All edits/amendments must be made on the electronic document DICTATION DATE: 07/01/181903 MILLER DISTILLERY: GABRIELA 07/01/181903 RPT#: [id number] DC DATE: STATUS: ADM IN [facility] [address] [place] [address] END OF REPORT
--- NOTE | 2018-07-01 21:25 | NUR ---
HS MEDICATIONS GIVEN TO INCLUDE METOPROLOL 2.5 MG PER PRN ORDER FOR HEART RATE OF 126. WILL CONTINUE TO MONITOR FOR NEEDS.
--- NOTE | 2018-07-01 21:30 | NUR ---
HOSPICE NURSE HERE VISITING WITH PT'S FAMILY. NOT APPROPRIATE FOR INPATIENT HOSPICE..MAY GET PEG TUBE HERE AND DISCHARGE ON HOME HOSPICE IN FUTURE PER HOSPICE NURSE.
--- NOTE | 2018-07-01 23:24 | NUR ---
HEARTRATE 106 THIS CHECK. WILL CONTINUE TO MONITOR DOREEN.
[2018-07-02] VITALS: BP 114/59
--- NOTE | 2018-07-02 03:20 | NUR ---
GAVE PRN LOPRESSOR IVP PER ORDER FOR ELEVATED PULSE RATE OF 126.
[2018-07-02 04:00] VITALS: BP 146/71
--- NOTE | 2018-07-02 05:17 | NUR ---
PT BATHED AND ALL LINENS AND GOWN CHANGED. LOTION AND POWDER APPLIED TO SKIN. MEEK CARE PERFORMED. CLEANSED COCCYX / BUTTOCK AREA WELL AND APPLIED SMALL MEPILEX BUTTERFLY DRESSING...PT HAS SMALL STAGE 2 ON RIGHT BUTTOCK SURROUNDED BY REDNESS. PT TURNED TO RIGHT SIDE WITH FOAM WEDGES FOR SUPPORT. HOB AT 30 DEGREES PER ORDER. SCD'S APPLIED TO BLE. HEELS BRIDGED.
--- NOTE | 2018-07-02 05:20 | NUR ---
CHANGED ALL FEEDING TUBING AND BAGS AND FILLED WITH FRESH GLUCERNA 1.0 AND WATER.
[2018-07-02 09:45] VITALS: BP 129/77
[2018-07-02 10:07] LABS: BASOPHILS 0.2 % (0-2); EOSINOPHILS 0.4 % (0-7); HEMATOCRIT 26.9 % (42.0-54.0); HEMOGLOBIN 8.2 g/dL (13.5-17.5); IMMATURE GRANULOCYTES 2.6 % (0-5); LYMPHOCYTES 13.1 % (15-50); MCH 30.1 pg (26.0-34.0); MCHC 30.5 g/dL (31.0-37.0); MCV 98.9 fL (80.0-100.0); MEAN PLATELET VOLUME 9.9 fL (7.4-10.4); MONOCYTES 7.6 % (2-11); NEUTROPHILS 76.1 % (40-80); PLATELET COUNT 247 10x3/uL (130-400); RBC 2.72 10x6/uL (4.20-6.10); WBC 10.2 10x3/uL (4.8-10.8)
--- NOTE | 2018-07-02 10:16 | NUR ---
PT SON IN ROOM WITH PT SPOUSE, INQUIRED ON ABX FOR PNA, ADVISED HIM PT ABX COMPLETED YESTERDAY UPON TRANSFER TO [facility] UNIT, HE THEN INQUIRED ON LABS, SAW THAT LABS HAVE NOT BEEN DRAWN IN A FEW DAYS, ORDERED CBC AND CMP WELL CHEST XRAY TO SEE ABOUT PNA PROGRESS, MOVED PT TO 2240 PER FAMILY REQUEST, COTNINUE WITH PLAN OF CARE
[2018-07-02 10:38] LABS: ALBUMIN 1.7 g/dL (3.4-5.0); ANION GAP 11.4 mmol/L (8-16); BILIRUBIN - TOTAL 2.03 mg/dL (0.2-1.3); CALCIUM 8.2 mg/dL (8.5-10.1); CARBON DIOXIDE 24.2 mmol/L (21.0-32.0); CREATININE - SERUM 1.5 mg/dL (0.6-1.3); POTASSIUM - SERUM 4.6 mmol/L (3.5-5.1); PROTEIN - SERUM 7.5 g/dL (6.4-8.2)
--- NOTE | 2018-07-02 11:37 | NUR ---
PT FAMILY WOULD LIKE OGT REMOVED AND SWALLOW STUDY ORDERED BEFORE CONSIDERING PEG TUBE, ADVISED I WILL RELAY REQUEST TO PROVIDERS
[2018-07-02 13:46] VITALS: BP 135/96
--- NOTE | 2018-07-02 15:40 | NUR ---
I have reviewed this patient and I concur with the Shift Assessment completed by the Licensed Practical Nurse today this shift.
--- NOTE | 2018-07-02 15:44 | NUR ---
I have reviewed this patient and I concur with the Shift Assessment completed by the Licensed Practical Nurse today this shift.
[2018-07-02 17:35] VITALS: BP 120/60
--- NOTE | 2018-07-02 18:40 | NUR ---
PT HAS BEEN ACCEPTED TO INPT HOSPICE AT [facility], CALLED REPORT TO ROBERTO LAINEZ AT [phone]. PT SON AND DAUGHTER IN LAW CAME TO SPAR FINISHER AND ASKED TO SPEAK WITH DR OAKES IN [place] TO QUALITY OF LIFE AND IF PT WOULD BE ABLE TO GET BETTER WITHOUT HOSPICE, DR RODRIGUEZ IS MAKING ROUNDS AND STATED HE WOULD BE IN TO SPEAK WITH FAMILY KOBI. AT 1830 ASKED FAMILY IF HAS BEEN BY, PT FAMILY STATED NO. WILL CONTINUE WITH PLAN OF CARE
[2018-07-02 20:00] VITALS: BP 125/69
--- NOTE | 2018-07-02 21:26 | MORECARE ---
CASE MANAGEMENT DISCHARGE SUMMARY PATIENT: KAYCEE THEODORE UNIT: [id number] ADM DATE: 06/22/18 AGE: 72 : 47 SEX: M ROOM/BED: D.2240 AUTHOR: RON KASPER PHYSICIAN: REFERRING PHYSICIAN: ESPERANZA RODRIGUEZ MD DATE OF SERVICE: 07/02/18 Discharge Plan Patient Name: KAYCEE THEODORE Facility: [facility]:[place] : 1945 Planned Disposition: Home Anticipated Discharge Date: Discharge Date: Expected LOS: Initial Reviewer: [email or web address] Initial Review Date: 06/22/2018 Generated: 07/02/18 10:25 pm Comments DCP- Discharge Planning Updated by [email or web address]: Lucrecia Hendricks on 07/02/18 8:[address] LATE ENTRY 1635 CM RECEIVED REQUEST FROM RHETT CURRY TO HAVE ANOTHER HOSPICE EVALUATE THE PATIENT FOR [facility]. CM TELEPHONED [facility] WITH REFERRAL. RECEIVED CALL BACK FROM DRE, THE PCAS NURSE. DISCUSSED REFERRAL. CLINICAL REFERRAL PACKET PREPARED FOR DRE. SHE SPOKE W/ PRIMARY NURSE, HAYDEE. REVIEWED PACKET. DISCUSSED AT LENGTH [facility] GIP WITH MULTIPLE FAMILY MEMBERS. DRE REVIEWED CASE W/ SWITCHBOARD OPERATOR HELPER, DR WM DAUGHERTY. 1839 PATIENT WAS ACCEPTED TO [place] [facility] AT [facility]. REPORT WAS CALLED. FAMILY CAME TO THE DESK AND REQUEST TO SPEAK WITH DR RODRIGUEZ. DISCHARGE TO HOSPICE HELD UNTIL FAMILY SPEAKS W/ DR RODRIGUEZ. 2114 DR RODRIGUEZ ARRIVED TO SPEAK WITH THE FAMILY. DCP- Discharge Planning Updated by [email or web address]: Lucrecia Hendricks on 07/01/18 6:[address] ORDER RECEIVED FOR HOSPICE CONSULT. SPOKE WITH VIJAY PRIMARY NURSE. TC TO [facility],. CONTRACTED [facility] HOSPICE PROVIDER. SPOKE WITH ANSWERING SERVICE. 1839 RECEIVED TELEPHONE CALL FROM PCAS NURSEFATMATA. REFERRAL INFORMATION PROVIDED. SHE WILL CONTACT NAOMI THEODORE, DAUGHTER IN LAW, DIRECTED BY ICU NURSE. AWAIT HOSPICE CONSULT. DCP- Discharge Planning Updated by [id number]: Marylou Moon on 06/23/18 2:[address] Patient Name: KAYCEE THEODORE Admission Status: ER Accout number: [id number] Admission Date: 06-22-2018 : 1945 Admission Diagnosis: Attending: ESPERANZA RODRIGUEZ Current LOS: 1 Anticipated DC Date: Planned Disposition: Home Primary Insurance: MEDICARE A & B Discharge Planning Comments: CM met with patient's daughter (Collin) at bedside. Patient is currently on ventilator and sedated. Collin stated that he lives at home with family and plans on him returning there upon discharge. She states that he has a cane and walker. She denies any current discharge needs at this time. CM will continue to follow and assist as needed with discharge planning / needs. Help Desk Coordinator: Marylou Moon DCPIA - Discharge Planning Initial Assessment Updated by [email or web address]: Marylou Moon on 06/23/18 2:55 pm * Is the patient Alert and Oriented? Yes * How many steps to enter\exit or inside your home? 10 - 14 * PCP BARRERA * Pharmacy [facility] * Preadmission Environment Home with Family * ADLs Independent * Other Equipment Cane, Walker * List name and contact numbers for known caregivers / representatives who currently or will assist patient after discharge: Collin Theodore - daughter - [phone] * Verbal permission to speak to the caregivers and representatives has been obtained from the patient. N/A * Community resources currently utilized None * Additional services required to return to the preadmission environment? No * Can the patient safely return to the preadmission environment? Yes * Has this patient been hospitalized within the prior 30 days at any hospital? No Last DP export: 07/01/18 6:05 p Patient Name: KAYCEE THEODORE Page 80902 at 2126 All edits/amendments must be made on the electronic document DICTATION DATE: 07/02/182124 LATEX THREAD MACHINE OPERATOR: GABRIELA 07/02/182124 RPT#: [id number] DC DATE: STATUS: ADM IN [facility] [address] [place] [address] END OF REPORT
--- NOTE | 2018-07-03 02:11 | NUR ---
DR RODRIGUEZ IN TO SEE FAMILY. THEN STATED TO [place] ORDERS FOR HOSPICE. CALL TO [facility] AND INFORMED ,THAT FAMILY HAS DESITED NOT TO DO HOSPICE AT THIS TIME.
[2018-07-03 04:00] VITALS: BP 146/81
[2018-07-03 05:26] LABS: INR 1.29 (0.85-1.17); PROTIME 15.6 SECONDS (11.6-15.0)
[2018-07-03 05:32] LABS: BASOPHILS 0.2 % (0-2); EOSINOPHILS 0.8 % (0-7); HEMATOCRIT 28.2 % (42.0-54.0); HEMOGLOBIN 8.7 g/dL (13.5-17.5); IMMATURE GRANULOCYTES 1.8 % (0-5); LYMPHOCYTES 14.1 % (15-50); MCH 30.4 pg (26.0-34.0); MCHC 30.9 g/dL (31.0-37.0); MCV 98.6 fL (80.0-100.0); MEAN PLATELET VOLUME 10.6 fL (7.4-10.4); MONOCYTES 6.1 % (2-11); PLATELET COUNT 290 10x3/uL (130-400); RBC 2.86 10x6/uL (4.20-6.10); RDW 17.9 % (11.5-14.5)
[2018-07-03 05:33] LABS: WBC 13.2 10x3/uL (4.8-10.8)
[2018-07-03 05:39] LABS: ALBUMIN 1.9 g/dL (3.4-5.0); ANION GAP 11.2 mmol/L (8-16); BILIRUBIN - TOTAL 2.58 mg/dL (0.2-1.3); CALCIUM 8.3 mg/dL (8.5-10.1); CARBON DIOXIDE 25.9 mmol/L (21.0-32.0); CREATININE - SERUM 1.2 mg/dL (0.6-1.3); PHOSPHOROUS 2.4 mg/dL (2.5-4.9); POTASSIUM - SERUM 4.1 mmol/L (3.5-5.1); PROTEIN - SERUM 7.9 g/dL (6.4-8.2)
--- NOTE | 2018-07-03 07:30 | NUR ---
PT IS RESTING IN BED WITH EYES OPEN. RESPIRATIONS ARE EVEN AND UNLABORED. FAMILY IS AT BEDSIDE. PT DOES NOT SPEAK OR UNDERSTAND ALBANIAN. FAMILY MEMBER INTERPRETS WITHOUT DIFFICULTY. PT WITH LARGE BM AT THIS TIME. PT CLEANED, LINENS CHANGED AND REPOSITIONED TO RIGHT SIDE. FEEDING TUBE RUNNING @65/HR WITH H20 FLUSH OF ML Q 4 HOURS. MEEK CATHETER NOTED AND DRAINING WITHOUT DIFFICULTY. FALL PRECAUTIONS ARE IN PLACE. BED IS IN THE LOWEST POSITION. CALL LIGHT AND BEDSIDE TABLE ARE WITHIN REACH. WILL CONT TO MONITOR.
[2018-07-03 08:55] VITALS: BP 122/85
--- NOTE | 2018-07-03 09:40 | NUR ---
PT REPOSITIONED TO LEFT SIDE.
[2018-07-03 10:14] LABS: APPEARANCE HAZY (CLEAR); COLOR YELLOW (YELLOW); SPECIFIC GRAVITY 1.015 (1.005-1.020)
[2018-07-03 10:15] LABS: BILIRUBIN NEGATIVE (NEGATIVE); GLUCOSE NEGATIVE (NEGATIVE); KETONE NEGATIVE (NEGATIVE); NITRITE NEGATIVE (NEGATIVE); PROTEIN 2+ mg/dL (NEGATIVE); UROBILINOGEN NORMAL (NORMAL)
[2018-07-03 10:18] LABS: EPITHELIAL CELLS 0-5 /hpf (0-5); WHITE CELLS - URINE 0-5 /hpf (0-5)
[2018-07-03 10:19] LABS: BACTERIA FEW /hpf (NONE SEEN)
--- NOTE | 2018-07-03 12:00 | NUR ---
PT REPOSITIONED TO BACK.
[2018-07-03 12:11] LABS: AEROBE ID Final report (()); RESULT 1 Pseudomonas luteola (())
[2018-07-03 13:00] VITALS: BP 144/88
--- NOTE | 2018-07-03 14:37 | NUR ---
PT REPOSITIONED TO RIGHT SIDE.
--- NOTE | 2018-07-03 14:59 | NUR ---
NUTRITION F/U SPEECH NOTE REVIEWED. REC'S TO START PUREED DIET WITH THIN LIQUIDS. WILL PROVIDE DIET WHEN ORDERED BY MD, MONITOR PT PROGRESS. RD FOLLOWING
--- NOTE | 2018-07-03 16:52 | NUR ---
PT REPOSITIONED TO BACK.
[2018-07-03 20:00] VITALS: BP 141/85
--- NOTE | 2018-07-04 03:49 | NUR ---
REC'D AT CHGE OF SHIFT FAMILY NOT IN ROOM PREVIOUS SHIFT STATES FAMILY WON'T BE HERE TONIGHT TO INTERPRET.WAS INCONTINENT OF LGE BROWN SOFT BM.PERICARE GIVEN.
[2018-07-04 04:00] VITALS: BP 139/84
--- NOTE | 2018-07-04 04:00 | NUR ---
I have reviewed this patient and I concur with the Shift Assessment completed by the Licensed Practical Nurse today this shift.
[2018-07-04 06:27] LABS: BASOPHILS 0.1 % (0-2); EOSINOPHILS 0.4 % (0-7); HEMATOCRIT 26.4 % (42.0-54.0); HEMOGLOBIN 8.3 g/dL (13.5-17.5); IMMATURE GRANULOCYTES 1.9 % (0-5); LYMPHOCYTES 11.7 % (15-50); MCHC 31.4 g/dL (31.0-37.0); MCV 98.5 fL (80.0-100.0); MEAN PLATELET VOLUME 10.3 fL (7.4-10.4); MONOCYTES 6.8 % (2-11); NEUTROPHILS 79.1 % (40-80); PLATELET COUNT 289 10x3/uL (130-400); RBC 2.68 10x6/uL (4.20-6.10); RDW 18.4 % (11.5-14.5); WBC 14.1 10x3/uL (4.8-10.8)
[2018-07-04 06:43] LABS: ALBUMIN 1.9 g/dL (3.4-5.0); ANION GAP 13.5 mmol/L (8-16); BILIRUBIN - TOTAL 2.56 mg/dL (0.2-1.3); CALCIUM 8.1 mg/dL (8.5-10.1); CARBON DIOXIDE 24.8 mmol/L (21.0-32.0); CREATININE - SERUM 1.1 mg/dL (0.6-1.3); POTASSIUM - SERUM 4.3 mmol/L (3.5-5.1); PROTEIN - SERUM 7.9 g/dL (6.4-8.2)
--- NOTE | 2018-07-04 08:00 | NUR ---
PT RESTING EYES CLOSED, EASY RISE AND FALL OF CHEST, NO SIGNS OF DISTRESS NOTED, TELE MONTIOR PLACED ON PT AT THIS TIME , CL IN REACH FALL PRECAUTIONS IN PLACE
[2018-07-04 08:52] VITALS: BP 170/98
--- NOTE | 2018-07-04 13:39 | NUR ---
NUTRITION F/U CHANGED DIET ORDER TO DIABETC PUREED VEGETARIAN. ALSO GETTING GLUCERNA ALICIA CHENG. RD FOLLOWING
[2018-07-04 13:49] VITALS: BP 137/86
--- NOTE | 2018-07-04 14:29 | NUR ---
CENTRAL LINE TAKEN OUT PER ORDERS VIA RN ANANTH, PT TOLERATED WITHOUT COMPLAINT, PERIPHERAL IV INFUSING TO THE LEFT HAND, CL IN REACH
--- NOTE | 2018-07-04 15:18 | MORECARE ---
CASE MANAGEMENT DISCHARGE SUMMARY PATIENT: KAYCEE THEODORE UNIT: [id number] ADM DATE: 06/22/18 AGE: 72 : [birth year] SEX: M ROOM/BED: D.2240 AUTHOR: RANJITH,DOC PHYSICIAN: REFERRING PHYSICIAN: ESPERANZA RODRIGUEZ MD DATE OF SERVICE: 07/04/18 Discharge Plan Patient Name: KAYCEE THEODORE Facility: [facility]:[place] : 1945 Planned Disposition: Home Anticipated Discharge Date: Discharge Date: Expected LOS: Initial Reviewer: [email or web address] Initial Review Date: 06/22/2018 Generated: 07/04/18 4:18 pm Comments DCP- Discharge Planning Updated by [email or web address]: Bre Burger on 07/04/18 2:[address] CM met with patient's about discharge planning. The asks me to come back in the morning when his daughter is present. CM will meet in am with daughter. My business card provided for any questions/needs. CM will continue to follow and assist with discharge planning/needs. DCP- Discharge Planning Updated by [email or web address]: Lucrecia Hendricks on 07/02/18 8:[address] LATE ENTRY 1635 CM RECEIVED REQUEST FROM RHETT CURRY TO HAVE ANOTHER HOSPICE EVALUATE THE PATIENT FOR [facility]. CM TELEPHONED [facility] WITH REFERRAL. RECEIVED CALL BACK FROM DRE, THE TIN ASSORTER NURSE. DISCUSSED REFERRAL. CLINICAL REFERRAL PACKET PREPARED FOR DRE. SHE SPOKE W/ PRIMARY NURSE, HAYDEE. REVIEWED PACKET. DISCUSSED AT LENGTH [facility] GIP WITH MULTIPLE FAMILY MEMBERS. DRE REVIEWED CASE W/ CLAIMS TECHNICIAN, DR WM DAUGHERTY. 1839 PATIENT WAS ACCEPTED TO [place] [facility] AT [facility]. REPORT WAS CALLED. FAMILY CAME TO THE DESK AND REQUEST TO SPEAK WITH DR RODRIGUEZ. DISCHARGE TO HOSPICE HELD UNTIL FAMILY SPEAKS W/ DR RODRIGUEZ. 2114 DR RODRIGUEZ ARRIVED TO SPEAK WITH THE FAMILY. DCP- Discharge Planning Updated by [email or web address]: Lucrecia Hendricks on 07/01/18 6:[address] ORDER RECEIVED FOR HOSPICE CONSULT. SPOKE WITH VIJAY PRIMARY NURSE. TC TO [place] [facility],. CONTRACTED [facility] HOSPICE PROVIDER. SPOKE WITH ANSWERING SERVICE. 1840 RECEIVED TELEPHONE CALL FROM TIN ASSORTER NURSE, FATMATA. REFERRAL INFORMATION PROVIDED. SHE WILL CONTACT NAOMI THEODORE, DAUGHTER IN LAW, DIRECTED BY ICU NURSE. AWAIT HOSPICE CONSULT. DCP- Discharge Planning Updated by [id number]: Marylou Sungr on 06/23/18 2:[address] Patient Name: KAYCEE THEODORE Admission Status: ER Accout number: [id number] Admission Date: 06-22-2018 : 1945 Admission Diagnosis: Attending: ESPERANZA RODRIGUEZ Current LOS: 1 Anticipated DC Date: Planned Disposition: Home Primary Insurance: MEDICARE A & B Discharge Planning Comments: CM met with patient's daughter (Collin) at bedside. Patient is currently on ventilator and sedated. Collin stated that he lives at home with family and plans on him returning there upon discharge. She states that he has a cane and walker. She denies any current discharge needs at this time. CM will continue to follow and assist as needed with discharge planning / needs. Jewel Hole Rough Opener: Marylou Moon DCPIA - Discharge Planning Initial Assessment Updated by [id number]: Marylou Red on 06/23/18 2:55 pm * Is the patient Alert and Oriented? Yes * How many steps to enter\exit or inside your home? 10 - 14 * PCP HOLLY * Pharmacy [facility] * Preadmission Environment Home with Family * ADLs Independent * Other Equipment Cane, Walker * List name and contact numbers for known caregivers / representatives who currently or will assist patient after discharge: Collin Theodore - daughter - [phone] * Verbal permission to speak to the caregivers and representatives has been obtained from the patient. N/A * Community resources currently utilized None * Additional services required to return to the preadmission environment? No * Can the patient safely return to the preadmission environment? Yes * Has this patient been hospitalized within the prior 30 days at any hospital? No Last DP export: 07/02/18 8:26 p Patient Name: KAYCEE THEODORE Page [id number] at 1515 All edits/amendments must be made on the electronic document DICTATION DATE: 07/04/18 1518 CORRECTIONAL OFFICER LIEUTENANT: GABRIELA 07/04/18 1518 RPT#: [id number] DC DATE: STATUS: ADM IN [facility] [address] [place] [address] END OF REPORT
--- NOTE | 2018-07-04 15:31 | NUR ---
OT NOTE: BED MOB WITH MAX ASSIST; CONT TO REQUIRE EXT ASSIST WITH SITTING BALANCE WHILE ON EDGE OF BED. UNABLE TO MAINTAIN STATIC SITTING. ABLE TO PERFORM UE/LE EXS WHILE ON EDGE OF BED WITH ASSIST OF FAMILY FOR VERBAL INSTRUCTION AND MODERATE HAND OVER HAND ASSIST FOR EXS. EXPLAINED TO FAMILY THAT WE WOULD ATTEMPT TO GET PT IN CHAIR BY END OF THE WEAK, BUT DUE TO POOR TRUNK STRENGTH AND STABILITY, IT WILL MAKE TRANSFERS VERY DIFFICULT. FAMILY STATED THAT PT WAS VERY STRONG ABOUT A MOS AGO. SHE DEMONSTRATED EXS THAT PT PERFORMED DAILY AND STATED THAT HE WAS WALKING WITH A CANE. HAFSA KHALIL, OTR/L
[2018-07-04 16:39] VITALS: BP 130/77
--- NOTE | 2018-07-04 18:02 | NUR ---
I have reviewed this patient and I concur with the Shift Assessment completed by the Licensed Practical Nurse today this shift.
[2018-07-04 20:27] VITALS: BP 126/73
--- NOTE | 2018-07-04 22:07 | NUR ---
LYING QUIETLY. NO DISTRESS NOTED. O2 @ 2L PER NC ON. RESP UNLABORED. IV INFUSING TO LEFT HAND WITHOUT REDNESS OR EDEMA NOTED. CL IN REACH
[2018-07-05 00:40] VITALS: BP 130/80
--- NOTE | 2018-07-05 04:34 | NUR ---
I have reviewed this patient and I concur with the Shift Assessment completed by the Licensed Practical Nurse today this shift.
[2018-07-05 06:04] LABS: ALBUMIN 1.8 g/dL (3.4-5.0); ANION GAP 12.8 mmol/L (8-16); BILIRUBIN - TOTAL 2.25 mg/dL (0.2-1.3); CALCIUM 8.2 mg/dL (8.5-10.1); CARBON DIOXIDE 24.6 mmol/L (21.0-32.0); CREATININE - SERUM 1.2 mg/dL (0.6-1.3); POTASSIUM - SERUM 4.4 mmol/L (3.5-5.1); PROTEIN - SERUM 7.5 g/dL (6.4-8.2)
[2018-07-05 07:29] LABS: BASOPHILS 0.2 % (0-2); EOSINOPHILS 0.7 % (0-7); IMMATURE GRANULOCYTES 2.5 % (0-5); LYMPHOCYTES 8.6 % (15-50); MCH 30.2 pg (26.0-34.0); MCHC 30.8 g/dL (31.0-37.0); MCV 98.1 fL (80.0-100.0); MEAN PLATELET VOLUME 10.7 fL (7.4-10.4); MONOCYTES 6.4 % (2-11); NEUTROPHILS 81.6 % (40-80); PLATELET COUNT 319 10x3/uL (130-400); RBC 2.65 10x6/uL (4.20-6.10); RDW 18.1 % (11.5-14.5); WBC 13.9 10x3/uL (4.8-10.8)
--- NOTE | 2018-07-05 07:30 | NUR ---
REC'D IN BED AWAKE AND ALERT. RESP EVEN AND UNLABORED WITH NO DISTRESS NOTED OR VOICED. NO C/O NOTED OR VOICED. PT UNABLE TO SPEAK ANY [place] AT THIS TIME BUT FAMILY AT BEDSIDE TO TRANSLATE. ASSESSMENT COMPLETED. C/L IN REACH T BEDSIDE.
--- NOTE | 2018-07-05 09:00 | NUR ---
MEEK CATH REMOVED AT THIS TIME WITH 250 ML NOTED TO COLLECTION DEVICE.
[2018-07-05 09:19] VITALS: BP 145/88
--- NOTE | 2018-07-05 10:44 | MORECARE ---
CASE MANAGEMENT DISCHARGE SUMMARY PATIENT: KAYCEE THEODORE UNIT: [id number] ADM DATE: 06/22/18 AGE: 72 : [birth year] SEX: M ROOM/BED: D.2240 AUTHOR: RANJITH,DOC PHYSICIAN: REFERRING PHYSICIAN: ESPERANZA RODRIGUEZ MD DATE OF SERVICE: 07/05/18 Discharge Plan Patient Name: KAYCEE THEODORE Facility: [facility]:[place] : 1945 Planned Disposition: Home Anticipated Discharge Date: Discharge Date: Expected LOS: Initial Reviewer: [email or web address] Initial Review Date: 06/22/2018 Generated: 07/05/18 11:43 am Comments DCP- Discharge Planning Updated by [email or web address]: Bre Burger on 07/05/18 9:[address] CM met with daughter (Collin) to discuss discharge planning. She states "Dr. Montalvo said he could go to inpatient rehab before going home." States they do not want hospice for here or home at this time and want to give him a chance for rehab. I explained that he would need to tolerate 3 hours of therapy a day at the inpatient rehab and a skilled facility is slower paced. She states she would like a referral to inpatient rehab. Skilled therapy list given and she states she will review the list but would like inpatient rehab. CM will continue to follow and assist with discharge planning/needs. DCP- Discharge Planning Updated by [email or web address]: Bre Burger on 07/04/18 2:[address] CM met with patient's about discharge planning. The asks me to come back in the morning when his daughter is present. CM will meet in am with daughter. My business card provided for any questions/needs. CM will continue to follow and assist with discharge planning/needs. DCP- Discharge Planning Updated by [email or web address]: Lucrecia Hendricks on 07/02/18 8:[address] LATE ENTRY 1635 CM RECEIVED REQUEST FROM RHETT CURRY TO HAVE ANOTHER HOSPICE EVALUATE THE PATIENT FOR [facility]. CM TELEPHONED [facility] WITH REFERRAL. RECEIVED CALL BACK FROM DRE, THE FABRICATION SUPERVISOR NURSE. DISCUSSED REFERRAL. CLINICAL REFERRAL PACKET PREPARED FOR DRE. SHE SPOKE W/ PRIMARY NURSE, HAYDEE. REVIEWED PACKET. DISCUSSED AT LENGTH [facility] GIP WITH MULTIPLE FAMILY MEMBERS. DRE REVIEWED CASE W/ DIE CUTTER, DR WM DAUGHERTY. 1839 PATIENT WAS ACCEPTED TO [place] [facility] AT [facility]. REPORT WAS CALLED. FAMILY CAME TO THE DESK AND REQUEST TO SPEAK WITH DR RODRIGUEZ. DISCHARGE TO HOSPICE HELD UNTIL FAMILY SPEAKS W/ DR RODRIGUEZ. 2114 DR RODRIGUEZ ARRIVED TO SPEAK WITH THE FAMILY. DCP- Discharge Planning Updated by [id number]: Lucrecia Hendricks on 07/01/18 6:[address] ORDER RECEIVED FOR HOSPICE CONSULT. SPOKE WITH VIJAY, PRIMARY NURSE. TC TO [facility],. CONTRACTED [facility] H[facility]PICE PROVIDER. SPOKE WITH ANSWERING SERVICE. 1839 RECEIVED TELEPHONE CALL FROM FABRICATION SUPERVISOR NURSE, FATMATA. REFERRAL INFORMATION PROVIDED. SHE WILL CONTACT NAOMI THEODORE, DAUGHTER IN LAW, DIRECTED BY ICU NURSE. AWAIT HOSPICE CONSULT. DCP- Discharge Planning Updated by [email or web address]: Marylou Moon on 06/23/18 2:[address] Patient Name: KAYCEE THEODORE Admission Status: ER Accout number: [id number] Admission Date: 06-22-2018 : 1945 Admission Diagnosis: Attending: ESPERANZA RODRIGUEZ Current LOS: 1 Anticipated DC Date: Planned Disposition: Home Primary Insurance: MEDICARE A & B Discharge Planning Comments: CM met with patient's daughter (Collin) at bedside. Patient is currently on ventilator and sedated. Collin stated that he lives at home with family and plans on him returning there upon discharge. She states that he has a cane and walker. She denies any current discharge needs at this time. CM will continue to follow and assist as needed with discharge planning / needs. Overhead Cleaner Maintainer: Marylou Moon DCPIA - Discharge Planning Initial Assessment Updated by [email or web address]: Marylou Moon on 06/23/18 2:55 pm * Is the patient Alert and Oriented? Yes * How many steps to enter\\exit or inside your home? 10 - 14 * PCP HOLLY * Pharmacy [facility] [place] * Preadmission Environment Home with Family * ADLs Independent * Other Equipment Cane, Walker * List name and contact numbers for known caregivers / representatives who currently or will assist patient after discharge: Collin Theodore - daughter - [phone] * Verbal permission to speak to the caregivers and representatives has been obtained from the patient. N/A * Community resources currently utilized None * Additional services required to return to the preadmission environment? No * Can the patient safely return to the preadmission environment? Yes * Has this patient been hospitalized within the prior 30 days at any hospital? No Last DP export: 07/04/18 2:18 p Patient Name: KAYCEE THEODORE Page 35110 at 1044 All edits/amendments must be made on the electronic document DICTATION DATE: 07/05/18 1043 PARTS INTERPRETER: GABRIELA 07/05/18 1043 RPT#: [id number] DC DATE: STATUS: ADM IN [facility] [address] [place] [address] END OF REPORT
--- NOTE | 2018-07-05 11:28 | NUR ---
Rehab Note- Acute Inpatient Rehab prescreen order received. Reviewed the patient's medical record, an both OT/PT Evals & notes. The patient currently is too low level for acute inpatient rehab at this time. Spoke with KAMARI Díaz- will follow at this time for possible improvement with therapy. Thank you for this referral! Adenike Childs RN CLinical Liaison, [facility] Rehab
[2018-07-05 12:43] VITALS: BP 136/79
--- NOTE | 2018-07-05 12:45 | NUR ---
OT NOTE: LATE ENTRY DOS 07/04/18 PT COMPLETED BED MOB AND EOB SITTING WITH MAX A. PT COMPLETED UE AAROM EXS. THANK YOU, LIYAH PEREZ
--- NOTE | 2018-07-05 14:29 | MORECARE ---
CASE MANAGEMENT DISCHARGE SUMMARY PATIENT: KAYCEE THEODORE UNIT: [id number] ADM DATE: 06/22/18 AGE: 72 : [birth year] SEX: M ROOM/BED: D.2240 AUTHOR: RANJITH,DOC PHYSICIAN: REFERRING PHYSICIAN: ESPERANZA RODRIGUEZ MD DATE OF SERVICE: 07/05/18 Discharge Plan Patient Name: KAYCEE THEODORE Facility: [facility]:[place] : 1945 Planned Disposition: Home Anticipated Discharge Date: Discharge Date: Expected LOS: Initial Reviewer: [id number] Initial Review Date: 06/22/2018 Generated: 07/05/18 3:29 pm Comments DCP- Discharge Planning Updated by [id number]: Bre Burger on 07/05/18 1:[address] Received a call from Adenike in inpatient rehab that he is too low level of functioning to be accepted to inpatient rehab at this time. I spoke with his daughter and asked her to choose a skilled facility. She states she would like to speak with Dr. Theodore and her mother before choosing a facility. CM will continue to follow and assist with discharge planning/needs. DCP- Discharge Planning Updated by [email or web address]: Bre Burger on 07/05/18 9:[address] CM met with daughter (Collin) to discuss discharge planning. She states "Dr. Montalvo said he could go to inpatient rehab before going home." States they do not want hospice for here or home at this time and want to give him a chance for rehab. I explained that he would need to tolerate 3 hours of therapy a day at the inpatient rehab and a skilled facility is slower paced. She states she would like a referral to inpatient rehab. Skilled therapy list given and she states she will review the list but would like inpatient rehab. CM will continue to follow and assist with discharge planning/needs. DCP- Discharge Planning Updated by [email or web address]: Bre Burger on 07/04/18 2:[address] CM met with patient's about discharge planning. The asks me to come back in the morning when his daughter is present. CM will meet in am with daughter. My business card provided for any questions/needs. CM will continue to follow and assist with discharge planning/needs. DCP- Discharge Planning Updated by [id number]: Lucrecia Hendricks on 07/02/18 8:[address] LATE ENTRY 1635 CM RECEIVED REQUEST FROM RHETT CURRY TO HAVE ANOTHER HOSPICE EVALUATE THE PATIENT FOR [facility]. CM TELEPHONED [facility] WITH REFERRAL. RECEIVED CALL BACK FROM DRE, THE RESIDENTIAL BUILDER NURSE. DISCUSSED REFERRAL. CLINICAL REFERRAL PACKET PREPARED FOR DRE. SHE SPOKE W/ PRIMARY NURSE, HADYEE. REVIEWED PACKET. DISCUSSED AT LENGTH [facility] GIP WITH MULTIPLE FAMILY MEMBERS. DRE REVIEWED CASE W/ [place] HISTORY PROFESSOR, DR WM DAUGHERTY. 1839 PATIENT WAS ACCEPTED TO [place] [facility] AT [facility]. REPORT WAS CALLED. FAMILY CAME TO THE DESK AND REQUEST TO SPEAK WITH DR RODRIGUEZ. DISCHARGE TO HOSPICE HELD UNTIL FAMILY SPEAKS W/ DR RODRIGUEZ. 2114 DR RODRIGUEZ ARRIVED TO SPEAK WITH THE FAMILY. DCP- Discharge Planning Updated by [email or web address]: Lucrecia Hendricks on 07/01/18 6:[address] ORDER RECEIVED FOR HOSPICE CONSULT. SPOKE WITH VIJAY, PRIMARY NURSE. TC TO [facility],. CONTRACTED [facility] HOSPICE PROVIDER. SPOKE WITH ANSWERING SERVICE. 1839 RECEIVED TELEPHONE CALL FROM RESIDENTIAL BUILDER NURSE, FATMATA. REFERRAL INFORMATION PROVIDED. SHE WILL CONTACT NAOMI THEODORE, DAUGHTER IN LAW, DIRECTED BY ICU NURSE. AWAIT HOSPICE CONSULT. DCP- Discharge Planning Updated by [email or web address]: Marylou Moon on 06/23/18 2:[address] Patient Name: KAYCEE THEODORE Admission Status: ER Accout number: [id number] Admission Date: 06-22-2018 : 1945 Admission Diagnosis: Attending: ESPERANZA RODRIGUEZ Current LOS: 1 Anticipated DC Date: Planned Disposition: Home Primary Insurance: MEDICARE A & B Discharge Planning Comments: CM met with patient's daughter (Collin) at bedside. Patient is currently on ventilator and sedated. Collin stated that he lives at home with family and plans on him returning there upon discharge. She states that he has a cane and walker. She denies any current discharge needs at this time. CM will continue to follow and assist as needed with discharge planning / needs. Sewer Pipe Layer Helper: Marylou Moon DCPIA - Discharge Planning Initial Assessment Updated by [email or web address]: Marylou Moon on 06/23/18 2:55 pm * Is the patient Alert and Oriented? Yes * How many steps to enter\\exit or inside your home? 10 - 14 * PCP HOLLY * Pharmacy [facility] * Preadmission Environment Home with Family * ADLs Independent * Other Equipment Cane, Walker * List name and contact numbers for known caregivers / representatives who currently or will assist patient after discharge: Collin Theodore - daughter - [phone] * Verbal permission to speak to the caregivers and representatives has been obtained from the patient. N/A * Community resources currently utilized None * Additional services required to return to the preadmission environment? No * Can the patient safely return to the preadmission environment? Yes * Has this patient been hospitalized within the prior 30 days at any hospital? No Last DP export: 07/05/18 9:44 a Patient Name: KAYCEE THEODORE Page [id number] at 1429 All edits/amendments must be made on the electronic document DICTATION DATE: 07/05/181428 PRESIDENT SALES AND MARKETING: GABRIELA 07/05/18 142 RPT#: [id number] DC DATE: STATUS: ADM IN [facility] [address] [place] [address] END OF REPORT
--- NOTE | 2018-07-05 15:20 | NUR ---
Noted dry/healing wound on left buttock measuring 1cm x 1cm. Recommended calmoseptine cream be applied to this area for protection from incontinence. Family is keeping pt positioned on his side with wedges. Wound care will continue monitoring.
--- NOTE | 2018-07-05 16:07 | NUR ---
OT NOTE: PT COMPLETED BED MOB WITH MOD/MAX A. PT COMPLETED BUE ASSISTED ROM FOR INCREASED AX TOLERANCE. PT COMPLETED SIMPLE HYGIENE TASK WITH MOD A. THANK YOU, LIYAH PEREZ
[2018-07-05 16:14] VITALS: BP 178/99
--- NOTE | 2018-07-05 17:51 | NUR ---
OT NOTE: PT PERFORMED WELL TODAY. FAMILY AT BEDSIDE TO ASSISST WITH COMMUNICATION. BED MOB WITH MAX ASSIST; SITTING BALANCE WITH MOD/MAX ASSIST; PERFORMED SIT TO STAND WITH WALKER AND MAX ASSIST. PT WITH DIFFICULTY HOLDING TO WALKER WITH R HAND DUE TO R SIDE WEAKNESS, HOWEVER, ABLE TO BEAR SOME WT THROUGH LES. TOLERATED 3 ATTEMPTS. BACK TO BED WITH MAX ASSIST. REPOSITIONED. DISCUSSED WITH NURSING REGARDING POSITIONING DUE TO EARLY SIGNS OF BREAKDOWN. NURSING WILL POSITION PT ON SIDE FOLLOWING LUNCH. PT WITH EPISODE OF DIARRHEA.. PT CLEANED AND PADS CHANGED. HAFSA KHALIL, OTR/L
--- NOTE | 2018-07-05 19:24 | NUR ---
I have reviewed this patient and I concur with the Shift Assessment completed by the Licensed Practical Nurse today this shift.
[2018-07-05 21:02] VITALS: BP 129/75
--- NOTE | 2018-07-05 21:40 | NUR ---
AWAKE,ALERT.PATIENT DOES NOT SPEAK ANGUILLAN. FAMILY IN ROOM TO INTERPERATE. PATIENT DENIES PAIN OR DISCOMFORT AT THIS TIME.IV INFUSING TO RIGHT HAND WITHOUT REDNESS OR EDEMA NOTED. INCONTINENT OF B/B . CHANGED AND REPOSITIONED TO RIGHT SIDE. CL IN REACH
[2018-07-06 04:11] LABS: BASOPHILS 0.1 % (0-2); EOSINOPHILS 1.5 % (0-7); HEMATOCRIT 28.1 % (42.0-54.0); HEMOGLOBIN 8.5 g/dL (13.5-17.5); IMMATURE GRANULOCYTES 1.2 % (0-5); LYMPHOCYTES 15.7 % (15-50); MCHC 30.2 g/dL (31.0-37.0); MCV 99.3 fL (80.0-100.0); MEAN PLATELET VOLUME 10.3 fL (7.4-10.4); MONOCYTES 8.3 % (2-11); NEUTROPHILS 73.2 % (40-80); PLATELET COUNT 317 10x3/uL (130-400); RBC 2.83 10x6/uL (4.20-6.10); RDW 18.3 % (11.5-14.5); WBC 13.9 10x3/uL (4.8-10.8)
[2018-07-06 04:30] LABS: ALBUMIN 1.9 g/dL (3.4-5.0); ANION GAP 10.9 mmol/L (8-16); BILIRUBIN - TOTAL 2.18 mg/dL (0.2-1.3); CALCIUM 8.6 mg/dL (8.5-10.1); CARBON DIOXIDE 29.9 mmol/L (21.0-32.0); CREATININE - SERUM 1.2 mg/dL (0.6-1.3); POTASSIUM - SERUM 3.8 mmol/L (3.5-5.1); PROTEIN - SERUM 8.3 g/dL (6.4-8.2)
[2018-07-06 04:46] VITALS: BP 149/74
--- NOTE | 2018-07-06 04:54 | NUR ---
I have reviewed this patient and I concur with the Shift Assessment completed by the Licensed Practical Nurse today this shift.
--- NOTE | 2018-07-06 07:30 | NUR ---
REC'D IN BED WITH EYES CLOSED RESTING WELL AT THIS TIME IN SUPINE POSITION. RESP EVEN AND UNLABORED WITH NO DISTRESS NOTED. CAN EXPRESS NEEDS AND WANTS. NO C/O NOTED OR VOICED. ASSESSMENT COMPLETED. C/L IN REACH AT BEDSIDE.
[2018-07-06 09:35] VITALS: BP 110/62
[2018-07-06 13:24] VITALS: BP 98/71
--- NOTE | 2018-07-06 14:26 | NUR ---
OT NOTE: PERFORMED BED MOB WITH MAX ASSIST; STATIC SITTING WAS IMPROVED TODAY, ABLE TO SIT ON EDGE OF BED WITH MIN ASSIST TODAY. ABLE TO STAND X 4 ATTEMPTS WITH MOD/MAX ASSIST. INCREASED AMOUNT OF WT BEARING THROUGH LES TODAY. ALSO ABLE TO USE R UE MORE THAN YESTERDAY. HAFSA KHALIL, OTR/L
--- NOTE | 2018-07-06 14:56 | NUR ---
I have reviewed this patient and I concur with the Shift Assessment completed by the Licensed Practical Nurse today this shift.
--- NOTE | 2018-07-06 15:21 | NUR ---
OT NOTE: PT COMPLETED FACE WASHING WITH MIN A. PT COMPLETED UE AROM FOR INCREASED I WITH ADLS. PT COMPLETED SIDE ROLLING WITH MIN A. THANK YOU, LIYAH PEREZ
[2018-07-06 17:09] LABS: SPE - A/G RATIO 0.5 (0.7-1.7); SPE - ALBUMIN 2.2 g/dL (2.9-4.4); SPE - ALPHA-1 GLOBULIN 0.3 g/dL (0.0-0.4); SPE - ALPHA-2 GLOBULIN 0.7 g/dL (0.4-1.0); SPE - GAMMA GLOBULIN 2.6 g/dL (0.4-1.8); SPE - M-SPIKE Not Observed g/dL (Not Observed); SPE - TOTAL PROTEIN 6.8 g/dL (6.0-8.5)
[2018-07-06 17:46] VITALS: BP 123/72
[2018-07-06 20:00] VITALS: BP 138/87
--- NOTE | 2018-07-06 21:30 | NUR ---
AWAKE,ALERT.O2 @ 4L PER NC ON. NO DISTRESS NOTED. SL TO LEFT HAND WITHOUT EDEMA OR REDNESS NOTED. FAMILY AT BEDSIDE TO INTERPERATE. NO COMPLAINTS VOICED.
[2018-07-07] VITALS (7 sets, daily range): BP systolic 100–152; BP diastolic 65–96
--- NOTE | 2018-07-07 02:55 | NUR ---
I have reviewed this patient and I concur with the Shift Assessment completed by the Licensed Practical Nurse today this shift.
[2018-07-07 05:23] LABS: ALBUMIN 1.9 g/dL (3.4-5.0); BILIRUBIN - TOTAL 1.82 mg/dL (0.2-1.3); CALCIUM 8.3 mg/dL (8.5-10.1); CARBON DIOXIDE 31.4 mmol/L (21.0-32.0); CREATININE - SERUM 1.3 mg/dL (0.6-1.3); POTASSIUM - SERUM 3.4 mmol/L (3.5-5.1)
[2018-07-07 05:26] LABS: BASOPHILS 0.1 % (0-2); EOSINOPHILS 1.3 % (0-7); HEMATOCRIT 27.4 % (42.0-54.0); HEMOGLOBIN 8.5 g/dL (13.5-17.5); IMMATURE GRANULOCYTES 1.3 % (0-5); LYMPHOCYTES 14.3 % (15-50); MCV 96.8 fL (80.0-100.0); MEAN PLATELET VOLUME 10.6 fL (7.4-10.4); MONOCYTES 9.9 % (2-11); NEUTROPHILS 73.1 % (40-80); PLATELET COUNT 362 10x3/uL (130-400); RBC 2.83 10x6/uL (4.20-6.10); RDW 18.6 % (11.5-14.5); WBC 11.9 10x3/uL (4.8-10.8)
--- NOTE | 2018-07-07 07:15 | NUR ---
REC'D IN WALKING ROUND AWAKE AND ALERT. RESP EVEN AND UNLABORED WITH NO DISTRESS NOTED. CAN EXPRESS NEEDS AND WANTS. NO C/O NOTED OR VOICED. FAMILY AT BEDSIDE TO TRANSLATE PT NEEDS. ASSESSMENT COMPLETED. C/L IN REACH AT BEDSIDE.
--- NOTE | 2018-07-07 14:22 | NUR ---
Nutrition Follow Up: Chart reviewed. Diet has been advanced to ADA Vegetarian pureed with thin liquids. BM: 07/04/18 Labs reviewed - Glucose elevated Meds noted including Lasix Rec continue ADA vegetarian diet with CONCESSION ATTENDANT recs for consistencies. Will honor food preferences. Rec consider an appetite stimulant. RD following.
--- NOTE | 2018-07-07 16:06 | NUR ---
OT NOTE: PT COMPLETED BED MOB WITH MOD A. PT COMPLETED EOB SITTING WITH MOD A. PT COMPLETED HYGIENE WITH MAX A. PT COMPLETED UE AROM AXS. THANK YOU, LIYAH PEREZ
--- NOTE | 2018-07-07 19:15 | NUR ---
PT ALERT WHEN ENTERING THE ROOM. PT SPEAKS BOYD AND DOES NOT SPEAK VENEZUELAN. DAUGHTER AT BEDSIDE AND STATES SHE WILL BE LEAVING FOR THE EVENING. DAUGHTER HAS THREE PIECES OF PAPER THAT HAS URINAL, PICTURE OF PT NEEDING TO TURN, AND WATER. PT ABLE TO SAY "YES" "NO" AND "OKAY". ORIENTED WHEN SPEAKING TO DAUGHTER, JUST UNABLE TO COMMUNICATE IN VENEZUELAN TO THIS NURSE. LEFT HAND SALINE LOCKED.
--- NOTE | 2018-07-07 23:25 | NUR ---
I have reviewed this patient and I concur with the Shift Assessment completed by the Licensed Practical Nurse today this shift.
--- NOTE | 2018-07-07 23:42 | NUR ---
PT USED CALL LIGHT. POINTED AT URINAL. USED WITH NO ISSUES. DOES NOT APPEAR IN ANY DISTRESS AT THIS TIME.
--- NOTE | 2018-07-08 03:31 | NUR ---
I have reviewed this patient and I concur with the Shift Assessment completed by the Licensed Practical Nurse today this shift.
--- NOTE | 2018-07-08 03:50 | NUR ---
RECEIVED CALL FROM SIZE CHANGER TECH STATING THAT PATIENT PULSE WAS 165 AND SUSTAINING. IMMEDIATELY CHECKED ON PT. PT ALERT AND ABLE TO POINT AT PICTURES TO COMMUNICATE WHAT HE WANTS. CHECK RADIAL PULSE. ERRATIC AND BOUNDING. HAD RN ASSESS WELL AND AGREED ERRATIC AND BOUNDING. CALLED DR. RODRIGUEZ AND REPORTED CONTINUED ELEVATED HEART RATE OF 150-165. DR. RODRIGUEZ AWARE AND STATED TO KEEP MONITORING PT AT THIS TIME. CPOC. PT HAS CALL LIGHT IN REACH. DOOR OPEN.
--- NOTE | 2018-07-08 07:25 | NUR ---
PT AAOX4 RESP EVEN AND NONLABORD NO SIGNS OF DISTRESS NOTED, FAMILY AT BEDSIDE TRANSLATING CL IN REACH
[2018-07-08 08:44] VITALS: BP 118/62
[2018-07-08 12:11] LABS: BASOPHILS 0.2 % (0-2); EOSINOPHILS 0.7 % (0-7); HEMATOCRIT 27.4 % (42.0-54.0); HEMOGLOBIN 8.4 g/dL (13.5-17.5); IMMATURE GRANULOCYTES 1.2 % (0-5); LYMPHOCYTES 14.7 % (15-50); MCH 29.7 pg (26.0-34.0); MCHC 30.7 g/dL (31.0-37.0); MCV 96.8 fL (80.0-100.0); MEAN PLATELET VOLUME 10.1 fL (7.4-10.4); MONOCYTES 7.4 % (2-11); NEUTROPHILS 75.8 % (40-80); PLATELET COUNT 337 10x3/uL (130-400); RBC 2.83 10x6/uL (4.20-6.10); RDW 18.3 % (11.5-14.5); WBC 9.6 10x3/uL (4.8-10.8)
[2018-07-08 12:32] VITALS: BP 113/72
[2018-07-08 13:05] LABS: ANION GAP 9.3 mmol/L (8-16); CALCIUM 7.8 mg/dL (8.5-10.1); CARBON DIOXIDE 32.7 mmol/L (21.0-32.0); CREATININE - SERUM 1.3 mg/dL (0.6-1.3)
[2018-07-08 17:14] VITALS: BP 104/58
--- NOTE | 2018-07-08 19:25 | NUR ---
PT ALERT AND SITTING UP IN BED. SON IN ROOM. DENIES NEEDS AT THIS TIME. LEFT HAND IV THAT IS SALINE LOCKED. NO DISTRESS NOTED AT THIS TIME. SPOKE WITH SON ABOUT PT NUTRITION. SON ADAMANT THAT PATIENT EATS DINNER TRAY. TOLD SON THAT THIS NURSE WOULD PASS IN REPORT.
[2018-07-08 19:41] VITALS: BP 117/63
--- NOTE | 2018-07-09 01:40 | NUR ---
PT USED CALL LIGHT. POINTED AT ENSURE. THIS NURSE SUPPLIED WITH ENSURE. PT DRANK ENTIRE BOTTLE.
[2018-07-09 07:05] LABS: BASOPHILS 0.2 % (0-2); EOSINOPHILS 2.1 % (0-7); HEMATOCRIT 28.7 % (42.0-54.0); HEMOGLOBIN 8.9 g/dL (13.5-17.5); IMMATURE GRANULOCYTES 1.1 % (0-5); LYMPHOCYTES 15.7 % (15-50); MCH 30.3 pg (26.0-34.0); MCV 97.6 fL (80.0-100.0); MEAN PLATELET VOLUME 10.5 fL (7.4-10.4); MONOCYTES 9.4 % (2-11); NEUTROPHILS 71.5 % (40-80); PLATELET COUNT 366 10x3/uL (130-400); RBC 2.94 10x6/uL (4.20-6.10); RDW 18.2 % (11.5-14.5); WBC 10.5 10x3/uL (4.8-10.8)
[2018-07-09 07:22] LABS: ANION GAP 6.1 mmol/L (8-16); CALCIUM 8.3 mg/dL (8.5-10.1); CARBON DIOXIDE 37.5 mmol/L (21.0-32.0); CREATININE - SERUM 1.3 mg/dL (0.6-1.3); POTASSIUM - SERUM 3.6 mmol/L (3.5-5.1)
[2018-07-09 08:44] VITALS: BP 122/69
--- NOTE | 2018-07-09 09:00 | NUR ---
PT ALERT AND ORINETATED FAMILY AT BEDSIDE TO TRANSLATE NO NEEDS EXPRESSED, NO SIGNS OF DISTRESS NOTED, CL IN REACH
[2018-07-09 13:21] VITALS: BP 114/61
[2018-07-09 17:30] VITALS: BP 111/73
--- NOTE | 2018-07-09 19:15 | NUR ---
RECEIVED REPORT, ASSUMED CARE, DENIES NEEDS, FAMILY AT BEDSIDE, BED LOWEST POSITION, CALL LIGHT IN REACH, ENSURE AT BEDSIDE, WILL CONTINUE TO MONITOR
[2018-07-09 20:00] VITALS: BP 112/61
[2018-07-10] VITALS: BP 105/40
[2018-07-10 04:00] VITALS: BP 104/56
[2018-07-10 06:42] LABS: BASOPHILS 0.3 % (0-2); HEMATOCRIT 28.6 % (42.0-54.0); HEMOGLOBIN 8.8 g/dL (13.5-17.5); IMMATURE GRANULOCYTES 1.1 % (0-5); MCH 29.7 pg (26.0-34.0); MCHC 30.8 g/dL (31.0-37.0); MCV 96.6 fL (80.0-100.0); MEAN PLATELET VOLUME 10.5 fL (7.4-10.4); MONOCYTES 9.2 % (2-11); NEUTROPHILS 66.4 % (40-80); PLATELET COUNT 352 10x3/uL (130-400); RBC 2.96 10x6/uL (4.20-6.10); WBC 10.9 10x3/uL (4.8-10.8)
[2018-07-10 06:47] LABS: ANION GAP 5.5 mmol/L (8-16); CALCIUM 8.2 mg/dL (8.5-10.1); CARBON DIOXIDE 38.4 mmol/L (21.0-32.0); CREATININE - SERUM 1.3 mg/dL (0.6-1.3); POTASSIUM - SERUM 3.9 mmol/L (3.5-5.1)
--- NOTE | 2018-07-10 07:45 | NUR ---
PT RESTING IN BED, EYES OPEN. DOES NOT SPEAK KISWAHILI. PT ALERT AND ORIENTED, CAN EXPRESS NEEDS WITH PICTURES. PT UP WITH PHYSICAL THERAPY. INCONTINENT AT TIMES. USES URINAL TO VOID. PT ON ELECTROLYTE PROTOCOL. PT ACHS. IV TO LEFT HAND, SL. SITE PATENT WITHOUT REDNESS OR SWELLING. MEDS CRUSHED WITH APPLESAUCE. PT ON TELEMETRY RATE 112 UNCONTROLLED AFIB. PT DENIES ANYTHING FURTHER AT THIS TIME. CALL LIGHT IN REACH. WILL CONTINUE TO MONITOR.
[2018-07-10 09:20] VITALS: BP 104/62
--- NOTE | 2018-07-10 11:37 | NUR ---
Rehab Note- The patient is still too low at this time for an acute inpatient rehab stay at this time. Will continue to follow at this time. Thank you for this referral! Adenike Childs RN CLinical Liaison, [facility] Rehab
--- NOTE | 2018-07-10 13:32 | MORECARE ---
CASE MANAGEMENT DISCHARGE SUMMARY PATIENT: KAYCEE THEODORE UNIT: [id number] ADM DATE: 06/22/18 AGE: 72 : [birth year] SEX: M ROOM/BED: D.2240 AUTHOR: RANJITH,DOC PHYSICIAN: REFERRING PHYSICIAN: ESPERANZA RODRIGUEZ MD DATE OF SERVICE: 07/10/18 Discharge Plan Patient Name: KAYCEE THEODORE Facility: [facility]:[place] : 1945 Planned Disposition: Home Anticipated Discharge Date: Discharge Date: Expected LOS: Initial Reviewer: [email or web address] Initial Review Date: 06/22/2018 Generated: 07/10/18 2:31 pm Comments DCP- Discharge Planning Updated by [id number]: Bre Burger on 07/10/18 12:[address] CM met with patient and . His states she would like me to call their daughter to see which skilled facility she would like him to go to. I spoke with Collin over the phone and she asks me to refer to [facility] and Rehab. I spoke with Sadaf at [facility] and Rehab and clinical faxed. CM will continue to follow and assist with discharge planning/needs. DCP- Discharge Planning Updated by [id number]: Bre Burger on 07/05/18 1:[address] Received a call from Adenike in inpatient rehab that he is too low level of functioning to be accepted to inpatient rehab at this time. I spoke with his daughter and asked her to choose a skilled facility. She states she would like to speak with Dr. Theodore and her mother before choosing a facility. CM will continue to follow and assist with discharge planning/needs. DCP- Discharge Planning Updated by [email or web address]: Bre Burger on 07/05/18 9:[address] CM met with daughter (Collin) to discuss discharge planning. She states "Dr. Montalvo said he could go to inpatient rehab before going home." States they do not want hospice for here or home at this time and want to give him a chance for rehab. I explained that he would need to tolerate 3 hours of therapy a day at the inpatient rehab and a skilled facility is slower paced. She states she would like a referral to inpatient rehab. Skilled therapy list given and she states she will review the list but would like inpatient rehab. CM will continue to follow and assist with discharge planning/needs. DCP- Discharge Planning Updated by [id number]: Bre Burger on 07/04/18 2:[address] CM met with patient's about discharge planning. The asks me to come back in the morning when his daughter is present. CM will meet in am with daughter. My business card provided for any questions/needs. CM will continue to follow and assist with discharge planning/needs. DCP- Discharge Planning Updated by [email or web address]: Lucrecia Hendricks on 07/02/18 8:[address] LATE ENTRY 1635 CM RECEIVED REQUEST FROM RHETT CURRY TO HAVE ANOTHER HOSPICE EVALUATE THE PATIENT FOR [facility]. CM TELEPHONED [facility] WITH REFERRAL. RECEIVED CALL BACK FROM DRE, THE LITHOGRAPHIC PRESS FEEDER NURSE. DISCUSSED REFERRAL. CLINICAL REFERRAL PACKET PREPARED FOR DRE. SHE SPOKE W/ PRIMARY NURSE, HAYDEE. REVIEWED PACKET. DISCUSSED AT LENGTH [facility] GIP WITH MULTIPLE FAMILY MEMBERS. DRE REVIEWED CASE W/ MECHANICAL DEVELOPMENT ENGINEER, DR WM DAUGHERTY. 1839 PATIENT WAS ACCEPTED TO [place] [facility] AT [facility]. REPORT WAS CALLED. FAMILY CAME TO THE DESK AND REQUEST TO SPEAK WITH DR RODRIGUEZ. DISCHARGE TO HOSPICE HELD UNTIL FAMILY SPEAKS W/ DR RODRIGUEZ. 2114 DR RODRIGUEZ ARRIVED TO SPEAK WITH THE FAMILY. DCP- Discharge Planning Updated by [id number]: Lucrecia Hendricks on 07/01/18 6:[address] ORDER RECEIVED FOR HOSPICE CONSULT. SPOKE WITH VIJAY PRIMARY NURSE. TC TO [facility],. CONTRACTED [facility] PROVIDER. SPOKE WITH ANSWERING SERVICE. 1839 RECEIVED TELEPHONE CALL FROM LITHOGRAPHIC PRESS FEEDER NURSEFATMATA. REFERRAL INFORMATION PROVIDED. SHE WILL CONTACT NAOMI THEODORE, DAUGHTER IN LAW, DIRECTED BY ICU NURSE. AWAIT HOSPICE CONSULT. DCP- Discharge Planning Updated by [email or web address]: Marylou Moon on 06/23/18 2:[address] Patient Name: KAYCEE THEODORE Admission Status: ER Accout number: [id number] Admission Date: 06-22-2018 : 1945 Admission Diagnosis: Attending: ESPERANZA RODRIGUEZ Current LOS: 1 Anticipated DC Date: Planned Disposition: Home Primary Insurance: MEDICARE A & B Discharge Planning Comments: CM met with patient's daughter (Collin) at bedside. Patient is currently on ventilator and sedated. Collin stated that he lives at home with family and plans on him returning there upon discharge. She states that he has a cane and walker. She denies any current discharge needs at this time. CM will continue to follow and assist as needed with discharge planning / needs. Research Manager: Marylou Moon DCPIA - Discharge Planning Initial Assessment Updated by [id number]: Marylou Moon on 06/23/18 2:55 pm * Is the patient Alert and Oriented? Yes * How many steps to enter\\exit or inside your home? 10 - 14 * PCP HOLLY * Pharmacy [facility] * Preadmission Environment Home with Family * ADLs Independent * Other Equipment Cane, Walker * List name and contact numbers for known caregivers / representatives who currently or will assist patient after discharge: Collin Theodore - daughter - [phone] * Verbal permission to speak to the caregivers and representatives has been obtained from the patient. N/A * Community resources currently utilized None * Additional services required to return to the preadmission environment? No * Can the patient safely return to the preadmission environment? Yes * Has this patient been hospitalized within the prior 30 days at any hospital? No External Providers External Provider: [facility] Next Contact Date: Service Request Date: Service Type: Resolution: Reviewer: Comments: Coverage Notice Reviewer: [email or web address] Rosanna Burger Notice Issued Date-Time: 07/10/2018 13:26 Notice Type: Patient Choice Letter Notice Delivered To: Family Member Relationship to Patient: Daughter Life Enrichment Director Name: Collin Theodore Delivery Method: HAND - Hand Delivered Kate Days: Prior Verbal Notification: Recipient Understood Notice: Yes Recipient Signature: Med Rec Note Co-signed by Attending: Coverage Notice Comment: [email or web address] for [facility] DP export: 07/05/18 1:29 p Patient Name: KAYCEE THEODORE Page [phone] at 1332 All edits/amendments must be made on the electronic document DICTATION DATE: 07/10/18 1331 PAINT PREPARER: GABRIELA 07/10/18 1331 RPT#: [id number] DC DATE: STATUS: ADM IN [facility] [address] [place] [address] END OF REPORT
[2018-07-10 13:59] VITALS: BP 119/74
--- NOTE | 2018-07-10 15:32 | NUR ---
I have reviewed this patient and I concur with the Shift Assessment completed by the Licensed Practical Nurse today this shift.
[2018-07-10 17:10] VITALS: BP 107/61
--- NOTE | 2018-07-10 17:50 | NUR ---
OT NOTE: PT COMPLETED SIDE ROLLING TO RELIEVE PRESSURE AND DECREASE RISK OF SKIN BREAKDOWN WITH MAX A. PT COMPLETED BUE AROM AXS. PT COMPLETED SIMPLE GROOMING TASK WITH MIN A. PT'S STATED "HE SEEMS STRONGER AND WAS ABLE TO SIT UP IN CHAIR TODAY FOR 2 HOURS." THANK YOU, LIYAH PEREZ
--- NOTE | 2018-07-10 18:48 | NUR ---
PT RESTING IN BED, EYES CLOSED. RESPIRATIONS EVEN AND UNLABORED. NO C/O PAIN. NO S/S OF ACUTE DISTRESS NOTED. CALL LIGHT IN REACH. PT DENIES ANYTHING FURTHER AT THIS TIME. WILL CONTINUE TO MONITOR.
[2018-07-10 20:00] VITALS: BP 106/72
[2018-07-11] VITALS: BP 116/68
--- NOTE | 2018-07-11 02:09 | NUR ---
REC'D. AT [facility]. OF SHIFT SITTING IN BED 40 DEGEES. FAMILY MEMBERS AT BEDSIDE. O2 2L/NC.MONITOR SHOWING UCAF NO SIGNS OR SYMPTOMS OF ANY DISTRESS AT PRESENT TIME.WILL CONTINUE TO MONITOR FOR ANY CHGES. AND FOLLOW CURRENT PLAN OF CARE,
[2018-07-11 04:00] VITALS: BP 118/79
--- NOTE | 2018-07-11 04:59 | NUR ---
I have reviewed this patient and I concur with the Shift Assessment completed by the Licensed Practical Nurse today this shift.
[2018-07-11 08:04] LABS: BASOPHILS 0.3 % (0-2); HEMATOCRIT 30.1 % (42.0-54.0); HEMOGLOBIN 9.3 g/dL (13.5-17.5); IMMATURE GRANULOCYTES 1.5 % (0-5); LYMPHOCYTES 25.8 % (15-50); MCHC 30.9 g/dL (31.0-37.0); MCV 97.1 fL (80.0-100.0); MEAN PLATELET VOLUME 10.4 fL (7.4-10.4); MONOCYTES 9.8 % (2-11); NEUTROPHILS 60.6 % (40-80); PLATELET COUNT 327 10x3/uL (130-400); WBC 8.9 10x3/uL (4.8-10.8)
[2018-07-11 08:27] LABS: ANION GAP 3.8 mmol/L (8-16); CALCIUM 8.4 mg/dL (8.5-10.1); CARBON DIOXIDE 39.4 mmol/L (21.0-32.0); CREATININE - SERUM 1.3 mg/dL (0.6-1.3); POTASSIUM - SERUM 4.2 mmol/L (3.5-5.1)
[2018-07-11 09:12] VITALS: BP 107/68
--- NOTE | 2018-07-11 09:18 | NUR ---
PT SITTING UP IN BED RESTING. AT BEDSIDE. PT DOESNT SPEAK MALAWIAN. IN ROOM TO COMMUNICATE. L HAND IV SL. ROOM AIR. VITALS STABLE. TOOK MEDS CRUSHED IN APPLE SAUCE WITHOUT DIFFICULTY. LOPERESOR HELD, BP 107/68 ROBITUSSIN TAKEN IN SYRINGE. MEPILEX TO BUTTOCKS. PEDAL PULSES 2+ EQUAL SYLVIE. NORMAL SINUS ON TELE. INCONTIENT AT TIMES. NO SIGNS OF PAIN AT THIS TIME. ASSISTED PT UP IN BED AND TURNED WTIH PILLOW UNDER BACK. BED LOWERED AND LOCKED. CL IN REACH. WILL CPOC.
--- NOTE | 2018-07-11 09:23 | NUR ---
PT REFUSES SCDS. STATES THAT PT DOESNT LIKE THEM. FALL PRECAUTIONS IN PLACE. YELLOW GOWN ON. NON SKID SOCKS. BED LOWERED AND LOCKED. AGUSTO MAT ON AND WORKING.
--- NOTE | 2018-07-11 10:50 | NUR ---
PT HAD DIFFICULTY SWALLOWING MEDICATION WHOLE WITH APPLESAUCE. PT ABLE TO GET MEDICATION DOWN WITH WATER. FAMILY AT BEDSIDE.
--- NOTE | 2018-07-11 11:12 | NUR ---
PHYSICAL THERAPY GOT PT ONTO BEDPAN IN CHAIR.
[2018-07-11 14:08] VITALS: BP 106/60
--- NOTE | 2018-07-11 17:14 | NUR ---
TURNED PT TO L SIDE. LEGS UP ON PILLOWS. FAMILY AT BEDSIDE.
--- NOTE | 2018-07-11 18:01 | MORECARE ---
CASE MANAGEMENT DISCHARGE SUMMARY PATIENT: KAYCEE THEODORE UNIT: [id number] ADM DATE: 06/22/18 AGE: 72 : 47 SEX: M ROOM/BED: D.2240 AUTHOR: RANJITH,DOC PHYSICIAN: REFERRING PHYSICIAN: ESPERANZA RODRIGUEZ MD DATE OF SERVICE: 07/11/18 Discharge Plan Patient Name: KAYCEE THEODORE Facility: [facility]:[place] : 1945 Planned Disposition: Home Anticipated Discharge Date: Discharge Date: Expected LOS: Initial Reviewer: [id number] Initial Review Date: 06/22/2018 Generated: 07/11/18 7:01 pm Comments DCP- Discharge Planning Updated by [email or web address]: Bre Burger on 07/11/18 4:[address] Spoke with daughter, Collin, today and she would like her father re evaluated for inpatient rehab. I spoke with Adenike in inpatient rehab and they will accept him for admission tomorrow. I informed the daughter. CM will continue to follow and assist with discharge planning/needs. DCP- Discharge Planning Updated by [id number]: Bre Burger on 07/10/18 12:[address] CM met with patient and . His states she would like me to call their daughter to see which skilled facility she would like him to go to. I spoke with Collin over the phone and she asks me to refer to [facility]. I spoke with Sadaf at [facility] and Rehab and clinical faxed. CM will continue to follow and assist with discharge planning/needs. DCP- Discharge Planning Updated by [id number]: Bre Burger on 07/05/18 1:[address] Received a call from Adenike in inpatient rehab that he is too low level of functioning to be accepted to inpatient rehab at this time. I spoke with his daughter and asked her to choose a skilled facility. She states she would like to speak with Dr. Theodore and her mother before choosing a facility. CM will continue to follow and assist with discharge planning/needs. DCP- Discharge Planning Updated by [id number]: Bre Burger on 07/05/18 9:[address] CM met with daughter (Collin) to discuss discharge planning. She states "Dr. Montalvo said he could go to inpatient rehab before going home." States they do not want hospice for here or home at this time and want to give him a chance for rehab. I explained that he would need to tolerate 3 hours of therapy a day at the inpatient rehab and a skilled facility is slower paced. She states she would like a referral to inpatient rehab. Skilled therapy list given and she states she will review the list but would like inpatient rehab. CM will continue to follow and assist with discharge planning/needs. DCP- Discharge Planning Updated by [email or web address]: Bre Burger on 07/04/18 2:[address] CM met with patient's about discharge planning. The asks me to come back in the morning when his daughter is present. CM will meet in am with daughter. My business card provided for any questions/needs. CM will continue to follow and assist with discharge planning/needs. DCP- Discharge Planning Updated by [email or web address]: Lucrecia Hendricks on 07/02/18 8:[address] LATE ENTRY 163 CM RECEIVED REQUEST FROM RHETT CURRY TO HAVE ANOTHER HOSPICE EVALUATE THE PATIENT FOR [facility]. CM TELEPHONED [facility] WITH REFERRAL. RECEIVED CALL BACK FROM DRE, THE PACKAGING OPERATOR NURSE. DISCUSSED REFERRAL. CLINICAL REFERRAL PACKET PREPARED FOR DRE. SHE SPOKE W/ PRIMARY NURSEHAYDEE. REVIEWED PACKET. DISCUSSED AT LENGTH [facility] GIP WITH MULTIPLE FAMILY MEMBERS. DRE REVIEWED CASE W/ LOCK ASSEMBLER, DR WM DAUGHERTY. 1839 PATIENT WAS ACCEPTED TO [place] [facility]. REPORT WAS CALLED. FAMILY CAME TO THE DESK AND REQUEST TO SPEAK WITH DR RODRIGUEZ. DISCHARGE TO HOSPICE HELD UNTIL FAMILY SPEAKS W/ DR RODRIGUEZ. 2114 DR RODRIGUEZ ARRIVED TO SPEAK WITH THE FAMILY. DCP- Discharge Planning Updated by [email or web address]: Lucrecia Hendricks on 07/01/18 6:[address] ORDER RECEIVED FOR HOSPICE CONSULT. SPOKE WITH VIJAY, PRIMARY NURSE. TC TO [facility],. CONTRACTED [facility]ICE PROVIDER. SPOKE WITH ANSWERING SERVICE. 1839 RECEIVED TELEPHONE CALL FROM PACKAGING OPERATOR NURSEFATMATA. REFERRAL INFORMATION PROVIDED. SHE WILL CONTACT NAOMI THEODORE, DAUGHTER IN LAW, DIRECTED BY ICU NURSE. AWAIT HOSPICE CONSULT. DCP- Discharge Planning Updated by [email or web address]: Marylou Moon on 06/23/18 2:[address] Patient Name: KAYCEE THEODORE Admission Status: ER Accout number: [id number] Admission Date: 06-22-2018 : 1945 Admission Diagnosis: Attending: ESPERANZA RODRIGUEZ Current LOS: 1 Anticipated DC Date: Planned Disposition: Home Primary Insurance: MEDICARE A & B Discharge Planning Comments: CM met with patient's daughter (Collin) at bedside. Patient is currently on ventilator and sedated. Collin stated that he lives at home with family and plans on him returning there upon discharge. She states that he has a cane and walker. She denies any current discharge needs at this time. CM will continue to follow and assist as needed with discharge planning / needs. Hide Inspector: Marylou Moon DCPIA - Discharge Planning Initial Assessment Updated by [email or web address]: Marylou Moon on 06/23/18 2:55 pm * Is the patient Alert and Oriented? Yes * How many steps to enter\\exit or inside your home? 10 - 14 * PCP BARRERA * Pharmacy [facility] * Preadmission Environment Home with Family * ADLs Independent * Other Equipment Cane, Walker * List name and contact numbers for known caregivers / representatives who currently or will assist patient after discharge: Collin Theodore - daughter - [phone] * Verbal permission to speak to the caregivers and representatives has been obtained from the patient. N/A * Community resources currently utilized None * Additional services required to return to the preadmission environment? No * Can the patient safely return to the preadmission environment? Yes * Has this patient been hospitalized within the prior 30 days at any hospital? No Coverage Notice Reviewer: [id number] Rosanna Burger Notice Issued Date-Time: 07/10/2018 13:26 Notice Type: Patient Choice Letter Notice Delivered To: Family Member Relationship to Patient: Daughter Labor Trainer Name: Collin Theodore Delivery Method: HAND - Hand Delivered Kate Days: Prior Verbal Notification: Recipient Understood Notice: Yes Recipient Signature: Med Rec Note Co-signed by Attending: Coverage Notice Comment: [facility] for [facility] Last DP export: 07/10/18 12:32 pm Patient Name: THEODORE, KANCHANLAL Page [phone] at 1801 All edits/amendments must be made on the electronic document DICTATION DATE: 07/11/181799 RELIGIOUS STUDIES PROFESSOR: GABRIELA 07/11/181799 RPT#: [id number] DC DATE: STATUS: ADM IN [facility] [address] [place] [address] END OF REPORT
--- NOTE | 2018-07-11 18:15 | NUR ---
I have reviewed this patient and I concur with the Shift Assessment completed by the Licensed Practical Nurse today this shift.
[2018-07-11 18:36] VITALS: BP 127/75
--- NOTE | 2018-07-11 20:13 | NUR ---
OT NOTE: PT COMPLETED BED MOB WITH MOD A. PT COMPLETED SIT TO STAND WITH MOD A. PT COMPLETED TOILETING WITH MAX A. PT COMPLETED BUE AROM AXS FOR INCREASED I WITH ADLS. PT EXHIBITED INCREASED TRUNK CONTROL WITH EOB SITTING. THANK YOU, LIYAH PEREZ
--- NOTE | 2018-07-11 20:29 | NUR ---
REC'D. IN BED IN SITTING UPRIGHT POSITION FAMILY AT BEDSIDE DENIES ANY COMPLAINTS OR DISCOMFORT AT PRESENT TIME.WILL CONTINUE TO MONITOR FOR ANY CHGES. AND FOLLOW CURRENT PLAN OF CARE.BED ARMED.WITH SAFETY PRECAUTIONS ACTIVE PREVIOUSLY ORDERED
[2018-07-11 21:21] VITALS: BP 101/60
[2018-07-12 04:39] VITALS: BP 132/81
--- NOTE | 2018-07-12 07:26 | NUR ---
I CONCUR WITH LINE HAUL DRIVER ASSESSMENT.
--- NOTE | 2018-07-12 07:30 | NUR ---
REC'D IN WALKING ROUND AWAKE AND ALERT TO NAME. RESP EVEN AND UNLABORED WITH NO DISTRSS NOTED. CAN EXPRESS NEEDS AND WANTS. NO C/O NOTED OR VOICED. ASSESSMENT COMPLETED. C/L IN REACH AT BEDSIDE.
[2018-07-12 08:04] LABS: BASOPHILS 0.4 % (0-2); EOSINOPHILS 2.1 % (0-7); HEMATOCRIT 30.6 % (42.0-54.0); HEMOGLOBIN 9.3 g/dL (13.5-17.5); IMMATURE GRANULOCYTES 1.7 % (0-5); MCH 29.6 pg (26.0-34.0); MCHC 30.4 g/dL (31.0-37.0); MCV 97.5 fL (80.0-100.0); MEAN PLATELET VOLUME 10.1 fL (7.4-10.4); MONOCYTES 6.6 % (2-11); NEUTROPHILS 68.2 % (40-80); PLATELET COUNT 344 10x3/uL (130-400); RBC 3.14 10x6/uL (4.20-6.10); RDW 17.9 % (11.5-14.5); WBC 8.9 10x3/uL (4.8-10.8)
[2018-07-12 08:18] LABS: ANION GAP 7.1 mmol/L (8-16); CREATININE - SERUM 1.3 mg/dL (0.6-1.3); POTASSIUM - SERUM 4.1 mmol/L (3.5-5.1)
[2018-07-12 09:35] VITALS: BP 122/67
[2018-07-12] MEDS ORDERED: IPRAT-ALBUT 0.5-3 ML INH (13:13)
[2018-07-12] MEDS ORDERED: GUAIFENESI100 MG/5 M NG (13:14)
[2018-07-12] MEDS ORDERED: LASIX INJ40 MG/4 ML IV (13:14)
[2018-07-12] MEDS ORDERED: HUMULIN R100 U/ML SC (13:14)
[2018-07-12] MEDS ORDERED: MIRALAX17 GM PO (13:14)
--- NOTE | 2018-07-12 13:33 | MORECARE ---
CASE MANAGEMENT DISCHARGE SUMMARY PATIENT: KAYCEE THEODORE UNIT: [id number] ADM DATE: 06/22/18 AGE: 72 : [birth year] SEX: M ROOM/BED: D.2240 AUTHOR: RANJITH,DOC PHYSICIAN: REFERRING PHYSICIAN: ESPERANZA RODRIGUEZ MD DATE OF SERVICE: 07/12/18 Discharge Plan Patient Name: KAYCEE THEODORE Facility: [facility]:[place] : 1945 Planned Disposition: Home Anticipated Discharge Date: Discharge Date: Expected LOS: Initial Reviewer: [id number] Initial Review Date: 06/22/2018 Generated: 07/12/18 2:32 pm Comments DCP- Discharge Planning Updated by [email or web address]: Bre Burger on 07/12/18 12:[address] Received authorization from Adenike that they will accept in inpatient rehab today. Collin is in the room and agrees with discharge. IMM served. Discharging today to inpatient rehab with telemetry order. CM will continue to follow and assist with discharge planning/needs. DCP- Discharge Planning Updated by [email or web address]: Bre Burger on 07/11/18 4:[address] Spoke with daughter, Collin, today and she would like her father re evaluated for inpatient rehab. I spoke with Adenike in inpatient rehab and they will accept him for admission tomorrow. I informed the daughter. CM will continue to follow and assist with discharge planning/needs. DCP- Discharge Planning Updated by [id number]: Bre Burger on 07/10/18 12:[address] CM met with patient and . His states she would like me to call their daughter to see which skilled facility she would like him to go to. I spoke with Collin over the phone and she asks me to refer to [facility] and Rehab. I spoke with Sadaf at [facility] and Rehab and clinical faxed. CM will continue to follow and assist with discharge planning/needs. DCP- Discharge Planning Updated by [email or web address]: Bre Burger on 07/05/18 1:[address] Received a call from Adenike in inpatient rehab that he is too low level of functioning to be accepted to inpatient rehab at this time. I spoke with his daughter and asked her to choose a skilled facility. She states she would like to speak with Dr. Theodore and her mother before choosing a facility. CM will continue to follow and assist with discharge planning/needs. DCP- Discharge Planning Updated by [email or web address]: Bre Burger on 07/05/18 9:[address] CM met with daughter (Collin) to discuss discharge planning. She states "Dr. Montalvo said he could go to inpatient rehab before going home." States they do not want hospice for here or home at this time and want to give him a chance for rehab. I explained that he would need to tolerate 3 hours of therapy a day at the inpatient rehab and a skilled facility is slower paced. She states she would like a referral to inpatient rehab. Skilled therapy list given and she states she will review the list but would like inpatient rehab. CM will continue to follow and assist with discharge planning/needs. DCP- Discharge Planning Updated by [id number]: Bre Burger on 07/04/18 2:[address] CM met with patient's about discharge planning. The asks me to come back in the morning when his daughter is present. CM will meet in am with daughter. My business card provided for any questions/needs. CM will continue to follow and assist with discharge planning/needs. DCP- Discharge Planning Updated by [email or web address]: Lucrecia Hendricks on 07/02/18 8:[address] LATE ENTRY 1635 CM RECEIVED REQUEST FROM RHETT CURRY TO HAVE ANOTHER HOSPICE EVALUATE THE PATIENT FOR [facility]. CM TELEPHONED [facility] WITH REFERRAL. RECEIVED CALL BACK FROM DRE, THE OXYGEN THERAPY TECHNICIAN NURSE. DISCUSSED REFERRAL. CLINICAL REFERRAL PACKET PREPARED FOR DRE. SHE SPOKE W/ PRIMARY NURSE, HAYDEE. REVIEWED PACKET. DISCUSSED AT LENGTH [facility] GIP WITH MULTIPLE FAMILY MEMBERS. DRE REVIEWED CASE W/ AIRCRAFT SEAT UPHOLSTERER, DR WM DAUGHERTY. 1839 PATIENT WAS ACCEPTED TO [place] [facility]. REPORT WAS CALLED. FAMILY CAME TO THE DESK AND REQUEST TO SPEAK WITH DR RODRIGUEZ. DISCHARGE TO HOSPICE HELD UNTIL FAMILY SPEAKS W/ DR RODRIGUEZ. 2114 DR RODRIGUEZ ARRIVED TO SPEAK WITH THE FAMILY. DCP- Discharge Planning Updated by [email or web address]: Lucrecia Hendricks on 07/01/18 6:[address] ORDER RECEIVED FOR HOSPICE CONSULT. SPOKE WITH VIJAY, PRIMARY NURSE. TC TO [facility],. CONTRACTED [facility] HOSPICE PROVIDER. SPOKE WITH ANSWERING SERVICE. 1840 RECEIVED TELEPHONE CALL FROM OXYGEN THERAPY TECHNICIAN NURSE, FATMATA. REFERRAL INFORMATION PROVIDED. SHE WILL CONTACT NAOMI THEODORE, DAUGHTER IN LAW, DIRECTED BY ICU NURSE. AWAIT HOSPICE CONSULT. DCP- Discharge Planning Updated by [id number]: Marylou Moon on 06/23/18 2:[address] Patient Name: KAYCEE THEODORE Admission Status: ER Accout number: [id number] Admission Date: 06-22-2018 : 1945 Admission Diagnosis: Attending: ESPERANZA RODRIGUEZ Current LOS: 1 Anticipated DC Date: Planned Disposition: Home Primary Insurance: MEDICARE A & B Discharge Planning Comments: CM met with patient's daughter (Collin) at bedside. Patient is currently on ventilator and sedated. Collin stated that he lives at home with family and plans on him returning there upon discharge. She states that he has a cane and walker. She denies any current discharge needs at this time. CM will continue to follow and assist as needed with discharge planning / needs. Spring Coverer: Marylou Moon DCPIA - Discharge Planning Initial Assessment Updated by [id number]: Marylou Moon on 06/23/18 2:55 pm * Is the patient Alert and Oriented? Yes * How many steps to enter\\exit or inside your home? 10 - 14 * PCP BARRERA * Pharmacy [facility] * Preadmission Environment Home with Family * ADLs Independent * Other Equipment Cane, Walker * List name and contact numbers for known caregivers / representatives who currently or will assist patient after discharge: Collin Theodore - daughter - [phone] * Verbal permission to speak to the caregivers and representatives has been obtained from the patient. N/A * Community resources currently utilized None * Additional services required to return to the preadmission environment? No * Can the patient safely return to the preadmission environment? Yes * Has this patient been hospitalized within the prior 30 days at any hospital? No Coverage Notice Reviewer: [id number] Rosanna Burger Notice Issued Date-Time: 07/10/2018 13:26 Notice Type: Patient Choice Letter Notice Delivered To: Family Member Relationship to Patient: Daughter Medical Office Clerk Name: Collin Theodoer Delivery Method: HAND - Hand Delivered Kate Days: Prior Verbal Notification: Recipient Understood Notice: Yes Recipient Signature: Med Rec Note Co-signed by Attending: Coverage Notice Comment: [facility] Reviewer: [id number] Rosanna Burger Notice Issued Date-Time: 07/12/2018 13:23 Notice Type: IM Discharge Notice Notice Delivered To: Family Member Relationship to Patient: Daughter Medical Office Clerk Name: Delivery Method: HAND - Hand Delivered Kate Days: Prior Verbal Notification: Recipient Understood Notice: Yes Recipient Signature: Yes Med Rec Note Co-signed by Attending: Coverage Notice Comment: IMM explained, signed by daughter, given, copy placed in MR Last DP export: 07/11/18 5:01 pm Patient Name: KAYCEE THEODORE Page [phone] at 1333 All edits/amendments must be made on the electronic document DICTATION DATE: 07/12/18 1332 EMBEDDED SYSTEMS ENGINEER: GABRIELA 07/12/18 1332 RPT#: [id number] DC DATE: STATUS: ADM IN [facility] [address] [place] [address] END OF REPORT
[2018-07-12 13:51] VITALS: BP 106/70
[2018-07-12] MEDS ORDERED: LASIX20 MG PO (14:01)
[2018-07-12] MEDS ORDERED: LASIX40 MG PO (14:02)
--- NOTE | 2018-07-12 17:00 | NUR ---
DC DOWN TO INHOUSE REHAB. DC INSTRUCTION GIVEN TO DAUGHTER VOICE UNDERSTANDING OF INSTRUCTION.
--- NOTE | 2018-07-12 20:59 | NUR ---
OT NOTE: PT COMPLETED SITTING BALANCE WITH MOD A AND CHAIR TO BED TRANSFER WITH MOD A. PT COMPLETED BUE AROM EXS. PT REQUIRED MAX VISUAL CUES. PT REQUIRED MAX A WITH TOILET HYGIENE. THANK YOU, LIYAH PEREZ
--- NOTE | 2018-07-14 00:08 | MORECARE ---
CASE MANAGEMENT DISCHARGE SUMMARY PATIENT: KAYCEE THEODORE UNIT: [id number] ADM DATE: 06/22/18 AGE: 72 : [birth year] SEX: M ROOM/BED: D.2240 AUTHOR: RANJITH,DOC PHYSICIAN: REFERRING PHYSICIAN: ESPERANZA RODRIGUEZ MD DATE OF SERVICE: 07/14/18 Discharge Plan Patient Name: KAYCEE THEODORE Facility: [facility]:[place] : 1945 Planned Disposition: Home Anticipated Discharge Date: Discharge Date: 07/12/2018 Expected LOS: Initial Reviewer: [email or web address] Initial Review Date: 06/22/2018 Generated: 07/14/18 1:08 am Comments DCP- Discharge Planning Updated by [id number]: Bre Burger on 07/12/18 12:[address] Received authorization from [facility] that they will accept in inpatient rehab today. Collin is in the room and agrees with discharge. IMM served. Discharging today to inpatient rehab with telemetry order. CM will continue to follow and assist with discharge planning/needs. DCP- Discharge Planning Updated by [email or web address]: Bre Burger on 07/11/18 4:[address] Spoke with daughter, Collin, today and she would like her father re evaluated for inpatient rehab. I spoke with [facility] in inpatient rehab and they will accept him for admission tomorrow. I informed the daughter. CM will continue to follow and assist with discharge planning/needs. DCP- Discharge Planning Updated by [id number]: Bre Burger on 07/10/18 12:[address] CM met with patient and . His states she would like me to call their daughter to see which skilled facility she would like him to go to. I spoke with Collin over the phone and she asks me to refer to [facility]. I spoke with Sadaf at [facility] and Rehab and clinical faxed. CM will continue to follow and assist with discharge planning/needs. DCP- Discharge Planning Updated by [id number]: Bre Burger on 07/05/18 1:[address] Received a call from [facility] in inpatient rehab that he is too low level of functioning to be accepted to inpatient rehab at this time. I spoke with his daughter and asked her to choose a skilled facility. She states she would like to speak with Dr. Theodore and her mother before choosing a facility. CM will continue to follow and assist with discharge planning/needs. DCP- Discharge Planning Updated by [id number]: Bre Burger on 07/05/18 9:[address] CM met with daughter (Collin) to discuss discharge planning. She states "Dr. Montalvo said he could go to inpatient rehab before going home." States they do not want hospice for here or home at this time and want to give him a chance for rehab. I explained that he would need to tolerate 3 hours of therapy a day at the inpatient rehab and a skilled facility is slower paced. She states she would like a referral to inpatient rehab. Skilled therapy list given and she states she will review the list but would like inpatient rehab. CM will continue to follow and assist with discharge planning/needs. DCP- Discharge Planning Updated by [email or web address]: Bre Burger on 07/04/18 2:[address] CM met with patient's about discharge planning. The asks me to come back in the morning when his daughter is present. CM will meet in am with daughter. My business card provided for any questions/needs. CM will continue to follow and assist with discharge planning/needs. DCP- Discharge Planning Updated by [email or web address]: Lucrecia Hendricks on 07/02/18 8:[address] LATE ENTRY 1635 CM RECEIVED REQUEST FROM RHETT CURRY TO HAVE ANOTHER HOSPICE EVALUATE THE PATIENT FOR [facility]. CM TELEPHONED [facility] WITH REFERRAL. RECEIVED CALL BACK FROM DRE, THE SPRING INSPECTOR NURSE. DISCUSSED REFERRAL. CLINICAL REFERRAL PACKET PREPARED FOR DRE. SHE SPOKE W/ PRIMARY NURSE, HAYDEE. REVIEWED PACKET. DISCUSSED AT LENGTH [facility] GIP WITH MULTIPLE FAMILY MEMBERS. DRE REVIEWED CASE W/ DISPENSER OPERATOR, DR WM DAUGHERTY. 1839 PATIENT WAS ACCEPTED TO [place] [facility]. REPORT WAS CALLED. FAMILY CAME TO THE DESK AND REQUEST TO SPEAK WITH DR RODRIGUEZ. DISCHARGE TO HOSPICE HELD UNTIL FAMILY SPEAKS W/ DR RODRIGUEZ. 2114 DR RODRIGUEZ ARRIVED TO SPEAK WITH THE FAMILY. DCP- Discharge Planning Updated by [id number]: Lucrecia Hendricks on 07/01/18 6:[address] ORDER RECEIVED FOR HOSPICE CONSULT. SPOKE WITH VIJAY, PRIMARY NURSE. TC TO [facility],. CONTRACTED [facility] PROVIDER. SPOKE WITH ANSWERING SERVICE. 1840 RECEIVED TELEPHONE CALL FROM SPRING INSPECTOR NURSE, FATMATA. REFERRAL INFORMATION PROVIDED. SHE WILL CONTACT NAOMI THEODORE, DAUGHTER IN LAW, DIRECTED BY ICU NURSE. AWAIT HOSPICE CONSULT. DCP- Discharge Planning Updated by [id number]: Marylou Moon on 06/23/18 2:[address] Patient Name: KAYCEE THEODORE Admission Status: ER Accout number: [id number] Admission Date: 06-22-2018 : 1945 Admission Diagnosis: Attending: ESPERANZA RODRIGUEZ Current LOS: 1 Anticipated DC Date: Planned Disposition: Home Primary Insurance: MEDICARE A & B Discharge Planning Comments: CM met with patient's daughter (Collin) at bedside. Patient is currently on ventilator and sedated. Collin stated that he lives at home with family and plans on him returning there upon discharge. She states that he has a cane and walker. She denies any current discharge needs at this time. CM will continue to follow and assist as needed with discharge planning / needs. Roving Technician: Marylou Moon DCPIA - Discharge Planning Initial Assessment Updated by [id number]: Marylou Moon on 06/23/18 2:55 pm * Is the patient Alert and Oriented? Yes * How many steps to enter\\exit or inside your home? 10 - 14 * PCP BARRERA * Pharmacy [facility] * Preadmission Environment Home with Family * ADLs Independent * Other Equipment Cane, Walker * List name and contact numbers for known caregivers / representatives who currently or will assist patient after discharge: Collin Theodore - daughter - [phone] * Verbal permission to speak to the caregivers and representatives has been obtained from the patient. N/A * Community resources currently utilized None * Additional services required to return to the preadmission environment? No * Can the patient safely return to the preadmission environment? Yes * Has this patient been hospitalized within the prior 30 days at any hospital? No Coverage Notice Reviewer: [id number] Rosanna Burger Notice Issued Date-Time: 07/10/2018 13:26 Notice Type: Patient Choice Letter Notice Delivered To: Family Member Relationship to Patient: Daughter Jewelry Bench Molder Name: Collin Theodore Delivery Method: HAND - Hand Delivered Kate Days: Prior Verbal Notification: Recipient Understood Notice: Yes Recipient Signature: Med Rec Note Co-signed by Attending: Coverage Notice Comment: [facility] for [facility] Reviewer: [id number] Rosanna Burger Notice Issued Date-Time: 07/12/2018 13:23 Notice Type: IM Discharge Notice Notice Delivered To: Family Member Relationship to Patient: Daughter Jewelry Bench Molder Name: Delivery Method: HAND - Hand Delivered Kate Days: Prior Verbal Notification: Recipient Understood Notice: Yes Recipient Signature: Yes Med Rec Note Co-signed by Attending: Coverage Notice Comment: IMM explained, signed by daughter, given, copy placed in MR Last DP export: 07/12/18 12:32 pm Patient Name: KAYCEE THEODORE Page [phone] at 0008 All edits/amendments must be made on the electronic document DICTATION DATE: 07/14/186 TRUCK LEASING MANAGER: GABRIELA 07/14/186 RPT#: [id number] DC DATE:07/12/18 STATUS: DIS IN [facility] [address] [place] [address] END OF REPORT
== END 2018-07-12 17:00 | DRG 870 ==
LOC: D.ER 22:21 → D.ICU 06-22 01:41 → D.MS 07-01 19:15 → D.SDCHOLD 07-01 21:09 → D.MS 07-01 21:10
PROVIDERS: Family Medicine; Internal Medicine Cardiovascular Disease; Internal Medicine Gastroenterology; Internal Medicine Hematology & Oncology; Internal Medicine Pulmonary Disease; ADMIT Internal Medicine Nephrology; ATTEND Internal Medicine Nephrology
PROC: 5A1955Z Respiratory Ventilation, Greater than 96 Consecutive Hours (ICD-10-PCS; principal; 2018-06-22)
PROC: 0BH17EZ Insertion of Endotracheal Airway into Trachea, Via Natural or Artificial Opening (ICD-10-PCS; 2018-06-22)
PROC: 05H633Z Insertion of Infusion Device into Left Subclavian Vein, Percutaneous Approach (ICD-10-PCS; 2018-06-22)
PROC: 0B978ZZ Drainage of Left Main Bronchus, Via Natural or Artificial Opening Endoscopic (ICD-10-PCS; 2018-06-23)
PROC: 0B938ZZ Drainage of Right Main Bronchus, Via Natural or Artificial Opening Endoscopic (ICD-10-PCS; 2018-06-23)
DX: A41.9 Sepsis, unspecified organism (principal); J96.01 Acute respiratory failure with hypoxia; J96.02 Acute respiratory failure with hypercapnia; R65.21 Severe sepsis with septic shock; K72.00 Acute and subacute hepatic failure without coma; I50.23 Acute on chronic systolic (congestive) heart failure; J15.6 Pneumonia due to other Gram-negative bacteria; G92 Toxic encephalopathy; N17.9 Acute kidney failure, unspecified; E87.2 Acidosis; I13.0 Hypertensive heart and chronic kidney disease with heart failure and stage 1 through stage 4 chronic kidney disease, or unspecified chronic kidney disease; K76.6 Portal hypertension; D64.9 Anemia, unspecified; E87.5 Hyperkalemia; N18.9 Chronic kidney disease, unspecified; E11.22 Type 2 diabetes mellitus with diabetic chronic kidney disease; G20 Parkinson's disease; F02.80 Dementia in other diseases classified elsewhere, unspecified severity, without behavioral disturbance, psychotic disturbance, mood disturbance, and anxiety; I48.91 Unspecified atrial fibrillation; D50.9 Iron deficiency anemia, unspecified; I25.10 Atherosclerotic heart disease of native coronary artery without angina pectoris; I95.9 Hypotension, unspecified; I44.7 Left bundle-branch block, unspecified

== ENCOUNTER 2018-07-12 17:33 | Inpatient (IN) | payer MEDICARE ==
[~2018-07-12] VITALS: Ht 160 cm; Wt 54.4 kg
[~2018-07-12 17:33] MED LIST: AMANTADINE100 M1 PO; BAYER CHEWABLE81 MG PO; COZAAR25 MG PO; ELIQUIS2.5 MG PO; GLUCOTROL 5 MG T5 MG PO; GUAIFENESI100 MG/5 M NG; HUMULIN R100 U/ML SC; IPRAT-ALBUT 0.5-3 ML INH; LASIX INJ40 MG/4 ML IV; LASIX20 MG PO; LASIX40 MG PO; MELATONIN 3 MG1 TAB PO; METOPROLOL TART25 MG PO; MIRALAX17 GM PO; SINEMET 25-2501 EACH PO; TIROSINT50 MCG PO
[2018-07-12 20:02] VITALS: BP 110/70
--- NOTE | 2018-07-12 21:33 | NUR ---
AWAKE AND ALERT. RESPIRATIONS UNLABORED. NO DISTRESS NOTED. SON AT BEDSIDE. PATIENT DOESNT SPEAK GREEK. LINE OPERATOR PHONE PROVIDED. SON STATES THAT HE WONT USE IT BECAUSE HE (PATIENT) DOESNT SPEAK MUCH ANYWAY DUE TO PARKINSONS DISEASE. SON IS INTERPRETERING AT THIS TIME AND PICTURE BOARDS ARE ALSO BEING USED. CALL LIGHT IN REACH.
[2018-07-12 22:12] VITALS: BP 156/90; BMI 21.3
--- NOTE | 2018-07-13 05:53 | NUR ---
QUIET HOURS. NO CHANGE IN CONDITION. NO DISTRESS NOTED.
[2018-07-13 06:49] LABS: BASOPHILS 0.2 % (0-2); EOSINOPHILS 2.2 % (0-7); HEMATOCRIT 29.6 % (42.0-54.0); HEMOGLOBIN 9.3 g/dL (13.5-17.5); IMMATURE GRANULOCYTES 1.3 % (0-5); LYMPHOCYTES 27.3 % (15-50); MCH 30.4 pg (26.0-34.0); MCHC 31.4 g/dL (31.0-37.0); MCV 96.7 fL (80.0-100.0); MEAN PLATELET VOLUME 10.1 fL (7.4-10.4); MONOCYTES 10.1 % (2-11); NEUTROPHILS 58.9 % (40-80); PLATELET COUNT 294 10x3/uL (130-400); RBC 3.06 10x6/uL (4.20-6.10); RDW 17.6 % (11.5-14.5)
[2018-07-13 06:52] LABS: ANION GAP 8.2 mmol/L (8-16); CALCIUM 8.5 mg/dL (8.5-10.1); CARBON DIOXIDE 33.3 mmol/L (21.0-32.0); CREATININE - SERUM 1.3 mg/dL (0.6-1.3); POTASSIUM - SERUM 4.5 mmol/L (3.5-5.1)
[2018-07-13 08:01] VITALS: BP 117/70
--- NOTE | 2018-07-13 08:15 | NUR ---
PT RESTING IN BED WITH EYES OPEN CALL LIGHT IN REACH WILL MONITER
--- NOTE | 2018-07-13 10:43 | NUR ---
PATIENT ADMITTED TO REHAB FROM ACUTE FLOOR.DR. BARRERA IS HIS PCP. DME AT HOME IS CANE AND A WALKER. DISHCARGE PLANS ARE FOR HIM TO REURN HOME WITH FAMILY. WILL CONTINUE TO FOLLOW WITH PATIENT AND WILL ASSIST WITH DISCHARGE NEEDS.
[2018-07-13 11:57] VITALS: Ht 160 cm; Wt 54.4 kg
--- NOTE | 2018-07-13 18:05 | NUR ---
PT RESTING IN BED WITH EYES OPEN CALL LIGHT IN REACH NO PROBLEMS
[2018-07-13 19:00] VITALS: BP 94/53
--- NOTE | 2018-07-13 19:41 | NUR ---
RESTING IN BED WITH EYES CLOSED AND RESPIRATIONS UNLABORED. O2/2L ON PER NASAL CANNULA. CALL LIGHT IN REACH.
--- NOTE | 2018-07-13 19:47 | NUR ---
RESTING IN BED WITH RESPIRATIONS UNLABORED. O2/2L ON PER NASAL CANNULA. NO DISTRESS NOTED. CALL LIGHT IN REACH.
--- NOTE | 2018-07-14 04:15 | NUR ---
CURRENTLY IN ATRILA FIB PER TELEMETRY. RESPIRATIONS UNLABORED. REPOSITIONED FOR COMFORT. MESSSAGE LEFT ON ROUNDING SHEET FOR DR STAHL. WILL MONITOR.
--- NOTE | 2018-07-14 06:17 | NUR ---
PATIENT BLOOD SUGAR 77. ORANGE JUICE 8 OUNCES GIVEN
[2018-07-14 08:00] VITALS: BP 138/75
[2018-07-14 08:16] LABS: BASOPHILS 0.3 % (0-2); EOSINOPHILS 1.6 % (0-7); HEMATOCRIT 30.8 % (42.0-54.0); HEMOGLOBIN 9.6 g/dL (13.5-17.5); IMMATURE GRANULOCYTES 1.1 % (0-5); LYMPHOCYTES 24.2 % (15-50); MCH 30.3 pg (26.0-34.0); MCHC 31.2 g/dL (31.0-37.0); MCV 97.2 fL (80.0-100.0); MEAN PLATELET VOLUME 10.2 fL (7.4-10.4); MONOCYTES 7.2 % (2-11); NEUTROPHILS 65.6 % (40-80); PLATELET COUNT 310 10x3/uL (130-400); RBC 3.17 10x6/uL (4.20-6.10); RDW 17.6 % (11.5-14.5); WBC 8.7 10x3/uL (4.8-10.8)
[2018-07-14 08:31] LABS: ANION GAP 6.6 mmol/L (8-16); CALCIUM 8.4 mg/dL (8.5-10.1); CARBON DIOXIDE 35.8 mmol/L (21.0-32.0); CREATININE - SERUM 1.5 mg/dL (0.6-1.3); POTASSIUM - SERUM 4.4 mmol/L (3.5-5.1)
--- NOTE | 2018-07-14 09:10 | NUR ---
PT AM MEDS ADMINISTERED. PT PARTICIAPTING IN THERAPY AT THIS TIME. WCTM.
--- NOTE | 2018-07-14 19:03 | NUR ---
PATIENT IS IN THE RESTROOM. HE IS BEING ASSISTED BY FAMILY MEMBERS. THEY DENY ANY NEEDS AT THIS TIME.
[2018-07-14 19:15] VITALS: BP 108/63
--- NOTE | 2018-07-14 21:25 | NUR ---
PATIENT IS RESTING IN HIS BED. BED IS DOWN LOW AND SIDE RAILS ARE UP X2. CALL LIGHT IS IN REACH.
--- NOTE | 2018-07-15 00:02 | NUR ---
PATIENT IS SLEEPING. HIS BED IS DOWN LOW AND SIDE RAILS UP X2. CALL LIGHT IS IN REACH.
--- NOTE | 2018-07-15 04:02 | NUR ---
PATIENT SLEEPING. HAS NOT CALL WITH ANY NEEDS AND NO SIGNS OF DISTRESS. URINAL EMPTIED. BED IS DOWN LOW WITH SIDE RAILS UP X2. CALL LIGHT IN REACH.
--- NOTE | 2018-07-15 07:54 | NUR ---
ALERT. DOESN'T SPEAK MUCH ARMENIAN. HAS PICTURES HE POINTS AT. NO SIGNS OF PAIN OR DISTRESS NOTED. CL IN REACH.
[2018-07-15 08:39] VITALS: BP 106/68
--- NOTE | 2018-07-15 11:03 | NUR ---
PARTICIPATING IN THERAPY AT THIS TIME.
--- NOTE | 2018-07-15 13:20 | NUR ---
SHOWER GIVEN TODAY PER OT.
--- NOTE | 2018-07-15 17:11 | NUR ---
NO CHANGE IN ASSESSMENT. RESTING WO DISTRESS. CL IN REACH.
--- NOTE | 2018-07-15 18:57 | NUR ---
PATIENT IS SITTING UP IN HIS WHEELCHAIR AND VISITING WITH FAMILY MEMBERS. THEY DENY ANY NEEDS. CALL LIGHT IS IN REACH.
[2018-07-15 21:10] VITALS: BP 103/51
--- NOTE | 2018-07-16 00:02 | NUR ---
PATIENT IS SLEEPING. HIS BED IS DOWN LOW AND SIDE RAILS ARE UP X2. CALL LIGHT IS IN REACH AND PATIENT USES THE CALL LIGHT FOR NEEDS.
--- NOTE | 2018-07-16 04:02 | NUR ---
PATIENT IS SLEEPING. BED IS DOWN LOW. CALL LIGHT IN REACH.
--- NOTE | 2018-07-16 08:21 | NUR ---
PT AM MEDS ADMINISTERED CRUSHED IN APPLESAUCE. PT ASSISTED [facility] URINAL. WCTM.
--- NOTE | 2018-07-16 17:26 | NUR ---
NOTED PT HAS BLOOD IN URINE. NOTIFIED. [facility].
[2018-07-16 19:15] VITALS: BP 143/79
--- NOTE | 2018-07-16 19:15 | NUR ---
PATIENT IS SITTING UP IN A WHEELCHAIR WITH FAMILY AT BEDSIDE. THEY DENY ANY NEEDS AT THIS TIME.
--- NOTE | 2018-07-17 00:09 | NUR ---
PATIENT IS SLEEPING. NO SIGNS OF DISTRESS. BED IS DOWN, SIDE RAILS UP X2, CALL LIGHT IN REACH.
--- NOTE | 2018-07-17 04:01 | NUR ---
PATIENT IS SLEEPING. BED IS DOWN LOW WITH SIDE RAILS UP X2 AND CALL LIGHT IS IN REACH.
[2018-07-17 08:00] VITALS: BP 122/81
[2018-07-17 08:00] LABS: BASOPHILS 0.7 % (0-2); EOSINOPHILS 2.9 % (0-7); HEMATOCRIT 29.4 % (42.0-54.0); IMMATURE GRANULOCYTES 0.4 % (0-5); LYMPHOCYTES 30.5 % (15-50); MCH 29.5 pg (26.0-34.0); MCHC 30.6 g/dL (31.0-37.0); MCV 96.4 fL (80.0-100.0); NEUTROPHILS 56.5 % (40-80); PLATELET COUNT 269 10x3/uL (130-400); RBC 3.05 10x6/uL (4.20-6.10); RDW 17.2 % (11.5-14.5)
[2018-07-17 08:07] LABS: CALCIUM 8.5 mg/dL (8.5-10.1); CARBON DIOXIDE 35.5 mmol/L (21.0-32.0); CREATININE - SERUM 1.6 mg/dL (0.6-1.3); POTASSIUM - SERUM 4.5 mmol/L (3.5-5.1)
--- NOTE | 2018-07-17 09:18 | NUR ---
PATIENT IS ALERT/DOES NOT SPEACK DANISH. USING CARDS IN ROOM WITH PICTURES FOR CERTAIN NEEDS. [id number] HERE. TRANSLATES FOR PATIENT. PATIENT VOICES NO NEEDS AT THIS TIME. DR Chilango STAHL INTO SEE PATIENT. WILL CONTINUE WITH PLAN OF CARE
--- NOTE | 2018-07-17 09:58 | RHP ---
PATIENT: KAYCEE BARKSDALE MEDICAL RECORD: [id number] ACCOUNT: [id number] LOCATION:[facility] [address] : [birth year] ADMISSION DATE: 07/12/18 REHABILITATION HISTORY AND PHYSICAL EXAMINATION POST ADMISSION PHYSICIAN EXAMINATION DATE OF ADMISSION: 07/12/2018 ADMITTING DIAGNOSIS: Cerebrovascular accident. HISTORY OF PRESENT ILLNESS: The patient admitted to inpatient rehab with a lacunar infarct with right-sided weakness. He is a 72-year-old Uz[place] male that does not speak Sinhala presents to the ED on 06/22/2018 with fever, shortness of breath, malaise, confusion and cough. He was noted to be in hypercapnic hypoxic respiratory failure. Upon admission, he was placed on BiPAP. His systolic blood pressures in the 80s despite given a fluid challenge. He was intubated in the ICU on 06/22/2018 for not responding very well to BiPAP. He has been having some heme-positive stools and chronic constipation. BNP was elevated throughout his stay. He had a CT of his head, which showed moderate chronic microvascular ischemic changes and an age-indeterminate right lentiform nucleus lacunar infarct. The patient is currently on supplemental O2. He has not been on this in the past. He has had some uncontrolled AFib at times. He got a new onset bundle branch block and incontinence. He continues to progress slowly with therapy. He has good family support. He is living at home with his and moderately independent walking stick prior to his admission. He is currently min to max assist with ADLs and max assist for mobility. The patient and his family would like him to return home as close to his previous level of functioning as possible. COMORBIDITIES: In this patient include acute critical illness myopathy, septic shock, acute toxic metabolic encephalopathy, multifocal pneumonia, acute kidney injury, lactic acidosis, diabetes mellitus, shock liver, CHF, AFib, coagulopathy cirrhosis, elevated liver enzymes, elevated troponin, sepsis. The patient has hypertension, diabetes, coronary artery disease and coronary artery bypass graft in the past, iron-deficient anemia and acute kidney injury on top of chronic kidney disease. PAST MEDICAL HISTORY: Significant for CAD, atrial fib, aortic valve problems, Parkinson's dementia, cataracts, diabetes, CHF, hypertension, AFib. PAST SURGICAL HISTORY: Includes coronary artery bypass grafting and he has had aortic valve and mitral valve replacement and a AAA repair. ALLERGIES: No known drug allergies. CURRENT MEDICATIONS: Include Ventolin updrafts p.r.n.; Lasix 40 mg b.i.d.; he is on Protonix 40 mg daily; MiraLax 17 grams in 8 ounces of water daily; losartan 25 mg daily; Synthroid 50 mcg daily; glipizide 5 mg b.i.d.; aspirin 81 mg daily; he is on a glucose replacement protocol; metoprolol 25 mg b.i.d.; he is on intermediate resistance sliding scale with Humulin; he is on Robitussin 10 cc every 6 hours p.r.n.; Sinemet 25/250 one tab q.i.d.; Eliquis 2.5 mg b.i.d., and Symmetrel or amantadine 100 mg b.i.d. HABITS: No current alcohol or tobacco use. HISTORY AND PHYSICAL [id number] [facility] H[facility]: Noncontributory. SOCIAL HISTORY: The patient hopes to return back home with his family and get back to his prior level of functioning. REVIEW OF SYSTEMS: Unable to obtain secondary to language barrier. PHYSICAL EXAMINATION: VITAL SIGNS: Stable, his blood pressure 117/70, pulse is 83 at this time. Pulse ox is actually a little bit decreased at 88%. GENERAL: An elderly Uzbek gentleman in no acute distress, alert upon exam. HEENT: Normocephalic and atraumatic. Mucosa moist. NECK: Supple. No lymphadenopathy. LUNGS: Clear in upper john. HEART: Irregular rate and rhythm. ABDOMEN: Benign. No guarding, no tenderness. EXTREMITIES: No clubbing, cyanosis or edema. NEUROLOGIC: He is noted to have right-sided weakness. LABORATORY DATA: White count 9.0, H&H of 9.3 and 29.6 and platelet count was noted to be 294. Sodium 135, potassium 4.5, BUN and creatinine of 22 and 1.3 and blood sugar is noted to be 137. ASSESSMENT: This is a 72-year-old gentleman admitted to the rehab with a working diagnosis of cerebrovascular accident with right body involvement. The patient has potential to make improvement. We instituted the following multidisciplinary therapies including, but not limited to physical, occupational, respiratory, speech, nutritional services, prosthetics and orthotics. Given his complex medical condition and risk for more complications, rehabilitation services cannot be provided at a low level of care such as mcc. PLAN: 1. Admit to [facility] for intensive inpatient therapy to include the following disciplines: A. Physical therapy to improve gait, all transfer skills and bed mobility to a modified independent level. B. Occupational therapy to a modified independent level. C. Case management to assist with discharge planning and placement options. D. Nutrition to assist with nutritional needs. E. Rehabilitation nursing to assist in monitoring the patient's underlying medical condition and to assist with any type of bowel or bladder management. 2. The patient's current medication and Medicare will be continued. 3. Continue on Eliquis for prophylaxis of deep vein thrombosis and also for his atrial fibrillation. 4. We will see him again in the a.m. TRANSINT:[id number] Voice Confirmation ID: [id number] DOCUMENT ID: [id number] AMOR notes whether there has been none or any medical/functional change since admission: - No change since preadmission screen. HISTORY AND PHYSICAL [id number] KAYCEE BARKSDALE attests patient continues to be appropriate for IRF: - Continues to be appropriate. XIMENA STAHL MD at 0958 CC: [id number] DICTATION DATE: 07/13/18 0846 STRATEGY PLANNING CONSULTANT: 07/13/18 0953 ADM IN [place] [id number] [place] [id number]
--- NOTE | 2018-07-17 10:27 | NUR ---
Nutrition Follow Up: Pt is on a diabetic pureed vegetarian diet Pt eating ~40% of meals Daughter in law reports pt is eating better the past couple days and she believes he is now gaining weight Weighed pt and pt weighed 117.8lb on standing scale Daughter in law is bringing in some foods from outside the hospital and bringing in non-pureed foods. Encouraged her to bring in heart healthy fats and add olive oil to help increase pt weight. Reported that pt is tolerating non-pureed foods well. -need to check with speech therapist Will speak with speech therapist about diet order and family bringing in foods that arent pureed. RD following
--- NOTE | 2018-07-17 13:30 | NUR ---
FAMILY IN WITH PATIENT. PATIENT DOES NOT SPEACK CITIZEN OF [place]. FAMILY HERE TO TRANSLATE FOR PATIENT
[2018-07-17 19:00] VITALS: BP 109/57
--- NOTE | 2018-07-17 19:10 | NUR ---
DAUGHTER TOOK HIM OUT IN WC FOR FRESH AIR, NO NEEDS VOICED BY DAUGHTER, PT DOES NOT SPEAK OMANI, FLUIDS AND CALL LIGHT WITHIN REACH
--- NOTE | 2018-07-18 00:43 | NUR ---
PT IN BED, EYES CLOSED, BED LOW, AROUSES TO VOICE, FLUIDS AND CALL LIGHT WITHIN REACH, NO NEEDS NOTED
--- NOTE | 2018-07-18 07:35 | NUR ---
ALERT AND ORIENTED. NO DISTRESS NOTED. CL IN REACH.
[2018-07-18 08:00] VITALS: BP 115/71
--- NOTE | 2018-07-18 13:13 | NUR ---
SITTING IN WC. GOING TO THERAPY AT THIS TIME. NO C/O PAIN.
--- NOTE | 2018-07-18 16:42 | NUR ---
NO CHANGE IN ASSESSMENT. RESTING WO C/O PAIN OR DISTRESS. CL IN REACH. DAUGHTER AT BS.
[2018-07-18 19:00] VITALS: BP 128/64
--- NOTE | 2018-07-18 19:18 | NUR ---
DOWN IN LOBBY VISITING WITH DAUGHTER. RESPIRATIONS UNLABORED. NO DISTRESS NOTED.
--- NOTE | 2018-07-19 01:32 | NUR ---
RESTING IN BED WITH RESPIRATIONS UNLABORED. NO DISTRESS NOTED. CALL LIGHT IN REACH.
--- NOTE | 2018-07-19 06:21 | NUR ---
QUIET HOURS. NO DISTRESS NOTED. NO CHANGES IN CONDITION THIS SHIFT. CALL LIGHT IN REACH.
--- NOTE | 2018-07-19 07:56 | NUR ---
EATING BREAKFAST. HAS TO BE FED. HAS TREMORS IN ARMS. NO SIGNS OF DISTRESS..
[2018-07-19 08:00] LABS: CALCIUM 8.5 mg/dL (8.5-10.1); CARBON DIOXIDE 32.2 mmol/L (21.0-32.0); CREATININE - SERUM 1.4 mg/dL (0.6-1.3); POTASSIUM - SERUM 4.2 mmol/L (3.5-5.1)
[2018-07-19 08:07] LABS: BASOPHILS 0.3 % (0-2); EOSINOPHILS 4.6 % (0-7); HEMATOCRIT 29.6 % (42.0-54.0); IMMATURE GRANULOCYTES 0.4 % (0-5); LYMPHOCYTES 29.9 % (15-50); MCH 29.6 pg (26.0-34.0); MCHC 30.4 g/dL (31.0-37.0); MCV 97.4 fL (80.0-100.0); MEAN PLATELET VOLUME 10.1 fL (7.4-10.4); MONOCYTES 10.1 % (2-11); NEUTROPHILS 54.7 % (40-80); PLATELET COUNT 289 10x3/uL (130-400); RBC 3.04 10x6/uL (4.20-6.10); RDW 16.9 % (11.5-14.5); WBC 7.1 10x3/uL (4.8-10.8)
--- NOTE | 2018-07-19 13:00 | NUR ---
SITTING IN WC. DAUGHTER AT BS. NO C/O PAIN.
[2018-07-19 13:22] VITALS: BP 122/78
--- NOTE | 2018-07-19 16:47 | NUR ---
RESTING WO DISTRESS. NO CHANGE IN ASSESSMENT. CL IN REACH. RESP EVEN AND UNLABORED. DAUGHTER AT BS.
[2018-07-19 19:00] VITALS: BP 115/55
--- NOTE | 2018-07-19 19:58 | NUR ---
PT IN BED, LOW POSITION, EYES OPEN, FAMILY AT BEDSIDE, NO IMMEDIATE NEEDS NOTED, FLUIDS AND CALL LIGHT WITHIN REACH
--- NOTE | 2018-07-20 01:23 | NUR ---
PT IN BED, LOW POSITION, EYES CLOSED, AROUSES EASILY TO VOICE, NO IMMEDIATE NEEDS NOTED
[2018-07-20 08:00] VITALS: BP 112/56
--- NOTE | 2018-07-20 08:00 | NUR ---
PATIENT IS ALERT. PATIENT DOES NOT SPEACK GREENLAND[place]. USING HAND MOTION AND CARDS IN ROOM TO COMMUNICATE. BED ALARM ON. CALL LIGHT WITHIN REACH. VOICES NO NEEDS AT THIS TIME. WILL CONTINUE WITH PLAN OF CARE
--- NOTE | 2018-07-20 10:09 | NUR ---
PATIENT IN REHAB ROOM. WORKING WITH PHYSICAL THERAPIST. DAUGHTER AT SIDE.
--- NOTE | 2018-07-20 12:16 | NUR ---
GLUCOSE LEVEL 255. TEN UNITS OF SLDING SCALE INSULIN GIVEN PER ORDER
[2018-07-20 19:00] VITALS: BP 122/79
--- NOTE | 2018-07-20 20:18 | NUR ---
THE PATIENT WAS SITTING IN HIS WHEELCHAIR WHEN STAFF ENTERED HIS ROOM. THE PATIENT DEMONSTRATES APPROPRIATE USE OF A CALL LIGHT. THE PATIENT APPEARS COMFORTABLE WITH NO QUESTIONS OR CONCERNS AT THIS TIME.
--- NOTE | 2018-07-21 03:44 | NUR ---
THE PATIENT APPEARS TO BE SLEEPING. BED IS IN THE LOW POSITION WITH SIDERAILS X2 AND CALL LIGHT WITHIN REACH.
[2018-07-21 06:25] LABS: ANION GAP 11.1 mmol/L (8-16); CALCIUM 8.3 mg/dL (8.5-10.1); CREATININE - SERUM 1.4 mg/dL (0.6-1.3); POTASSIUM - SERUM 4.1 mmol/L (3.5-5.1)
[2018-07-21 07:00] LABS: BASOPHILS 0.4 % (0-2); EOSINOPHILS 3.4 % (0-7); HEMATOCRIT 28.8 % (42.0-54.0); HEMOGLOBIN 8.8 g/dL (13.5-17.5); IMMATURE GRANULOCYTES 0.3 % (0-5); LYMPHOCYTES 30.5 % (15-50); MCH 29.4 pg (26.0-34.0); MCHC 30.6 g/dL (31.0-37.0); MCV 96.3 fL (80.0-100.0); MEAN PLATELET VOLUME 9.4 fL (7.4-10.4); MONOCYTES 7.8 % (2-11); NEUTROPHILS 57.6 % (40-80); PLATELET COUNT 282 10x3/uL (130-400); RBC 2.99 10x6/uL (4.20-6.10); RDW 17.1 % (11.5-14.5); WBC 7.7 10x3/uL (4.8-10.8)
[2018-07-21 08:00] VITALS: BP 113/62
--- NOTE | 2018-07-21 08:00 | NUR ---
PT RESTING IN BED WITH EYES OPEN CALL LIGHT IN REACH NO PROBLEMS WILL MONITER
[2018-07-21] MEDS ORDERED: GLUCOTROL 5 MG T5 MG PO (08:26)
--- NOTE | 2018-07-21 10:22 | NUR ---
PATIENT DISCHARGING HOME TODAY WITH FAMILY. [facility] WILL PROVIDE THERAPY AT HOME. [facility] WILL DELIVER A WHEELCHAIR AND SHOWER CHAIR TO PATIENT HOME. DR. BARRERA 07/28/18 @ 11:45, DR. STUART 08/01/18 @ 11:15, DR. DUARTE 08/16/18 @ 10:15. PATIENT CHOICE FORM AND IMFM FORMS SIGNED, COPY GIVEN TO PATIENT AND FILED IN CHART. DISCHARGE INSTRUCTIONS WITH [facility]IM DATA FAXED TO PCP, HOME HEALTH AND REVIEWED WITH PATIENT AND FAMILY.
--- NOTE | 2018-07-21 13:00 | NUR ---
PT DISCHARGED HOME VIA WHEELCHAIR MEDS CALLED TO [facility] DISCHARGE SUMMARY AND MEDS REVIEWED WITH DAUGHTER IN LAW NO QUESTIONS OR CONCERNS WILL MONITER
== END 2018-07-21 15:26 | disposition home health service (06) | DRG 56 ==
LOC: D.REHAB 17:33
PROVIDERS: ADMIT Emergency Medicine; ATTEND Emergency Medicine
DX: I69.351 Hemiplegia and hemiparesis following cerebral infarction affecting right dominant side (principal); R65.21 Severe sepsis with septic shock; G93.41 Metabolic encephalopathy; J18.9 Pneumonia, unspecified organism; K72.00 Acute and subacute hepatic failure without coma; A41.9 Sepsis, unspecified organism; J96.02 Acute respiratory failure with hypercapnia; J96.01 Acute respiratory failure with hypoxia; I50.33 Acute on chronic diastolic (congestive) heart failure; G72.81 Critical illness myopathy; N17.9 Acute kidney failure, unspecified; E87.2 Acidosis; I13.0 Hypertensive heart and chronic kidney disease with heart failure and stage 1 through stage 4 chronic kidney disease, or unspecified chronic kidney disease; I11.0 Hypertensive heart disease with heart failure; I48.91 Unspecified atrial fibrillation; K74.60 Unspecified cirrhosis of liver; E11.22 Type 2 diabetes mellitus with diabetic chronic kidney disease; N18.9 Chronic kidney disease, unspecified; D50.9 Iron deficiency anemia, unspecified; E11.65 Type 2 diabetes mellitus with hyperglycemia; R13.12 Dysphagia, oropharyngeal phase; D64.9 Anemia, unspecified; E87.5 Hyperkalemia; E86.0 Dehydration